=== PATIENT | male | born 1950 | race Two or more races ===

== ENCOUNTER 2025-03-17 17:57 | Inpatient (IN) | payer OTHER, MEDICAID ==
[~2025-03-17] VITALS: Ht 167.6 cm; Wt 82.1 kg
[2025-03-17 19:02] LABS: Hematocrit 28.6 % (41.0-53.0); Hemoglobin 9.1 g/dL (13.5-17.5); Nucleated Red Blood Cells % 0.1 %
[2025-03-17 19:03] LABS: Mean Corpuscular Hemoglobin 24.7 pg (28.0-32.0); Mean Corpuscular Volume 77.8 fL (80.0-100.0)
[2025-03-17 19:15] LABS: Urine Protein, UAD Negative (Negative)
[2025-03-17 19:17] LABS: Alanine Aminotransferase 20 U/L (7-40); Albumin 3.7 g/dL (3.2-4.8); Alkaline Phosphatase 79 U/L (46-116); Anion Gap 8 (5-15); BUN/Creatinine Ratio 8.0 (10.0-20.0); Blood Urea Nitrogen 18 mg/dL (9-23); Calcium 8.8 mg/dL (8.7-10.4); Carbon Dioxide 26 mmol/L (20-31); Glucose 103 mg/dL (74-106); Potassium 3.9 mmol/L (3.5-5.1); Sodium 144 mmol/L (136-145); Total Protein 6.2 g/dL (5.7-8.2)
[2025-03-17 19:18] LABS: Bilirubin, Total 0.4 mg/dL (0.2-1.0); Chloride 110 mmol/L (98-107)
--- NOTE | 2025-03-17 19:33 | ED.PDOC ---
GI ASSESSMENT HPI Comments HPI: 74 year old male presents to the emergency department with a chief complaint of diarrhea onset 10 days. Patient states he began experiencing diarrhea 10 days ago, dark brown/black as well as suprapubic pain, has about 3 bowel movements a day. Patient states 5 days ago, he began experiencing bilateral lower extremity swelling. According to patient's brother, patient has been consuming severe amounts of ETOH in the past 2 months. No other symptoms or modifying factors present at this time. Initial Vitals BP: 165/86 HR: 104 RR:18 O2: 96 Temp: 99.1 F Past Medical History: enlarged prostate, HTN Past Surgical History: Denies Social History: Denies ETOH, smoking, and drug use. Medications:Denies Allergies: NKDA HPI: Poor Historian. Past Medical History: Past Surgical History: REVIEW OF SYSTEMS: CONSTITUTIONAL: Denies acute: fever, diaphoresis, chills, HEAD: Denies acute: headache, photophobia Eyes: Denies acute: Double vision, vision loss, eye pain, eye discharge. EARS: Denies acute: tinnitus, hearing loss, ear discharge, ear pain, THROAT: Denies acute: sore throat, swelling, difficulty swallowing , pain with swallowing, change in voice. NECK: Denies acute: neck pain, neck swelling, stiff neck. HEART: Denies acute : chest pain, palpitations, LUNGS: Denies acute: SOB, wheezing, cough, hemoptysis ABDOMEN: Denies acute: Nausea, Vomiting, , hematemesis, hematochezia SKIN: Denies acute: rash, redness, lesions, itchiness. EXTREMITIES: Denies acute: calf pain, numbness, tingling, weakness, denies pain in extremity. Denies acute: Low back pain. Neuro: Denies acute: focal neurological deficit, motor or sensory focal neurological deficit, tremors, seizure like activity, confusion, dizziness, change in mental status, loss of bowel or bladder function, cauda equina like symptoms. : Denies acute: hematuria, flank pain, increase in urinary frequency. PSYCH: Denies acute: hallucination, suicidal ideation, homicidal ideation. PHYSICAL EXAM: General: ----mild----acute distress, awake and alert. Head: normocephalic, atraumatic. Neck: supple, trachea is midline, no swelling. Throat: Normal phonation. Eyes:, no erythema, no purulent discharge, no proptosis, no icterus. Heart: regular tachycardia, no significant murmur appreciated. Lungs: no apparent respiratory distress, Able to speak in full sentences. No wheezing, no rhonchi, no crackles. No stridors Clear to auscultation bilaterally. Abdomen: Suprapubic tender to palpation, non distended, soft, no guarding, no rebound, + bowel sounds. Neuro: Awake, Alert, oriented to name, self, situation, follows commands GCS=15. Speech is normal. Skin: no petechia, no purpura, no cyanosis, slightly-pale, not jaundice. Lower extremities: --4/4 b/l - Pitting edema no deformity, no focal swelling, no calf TTP. Makes eye contact. moves all four extremities. Face: no apparent facial droop. Ambulating in the ED independently. ED COURSE: DISCLAIMER: This medical document was created using an electronic medical record system with voice recognition software and computerized dictation system. Although this document has been carefully reviewed, there might still be some phonetic and typographical errors. Occasional wrong-word or "sound-alike" substitutions may have occurred due to the inherent limitations of voice recognition software. These areas are purely typographical due to imperfections of the software programs and do not reflect any compromise in the patient's medical care. Please read the chart carefully and recognize, using context, where these substitutions have occurred. Chief Complaint: Flank Pain Time Seen by MD: 19:20 Primary Care Provider: UNKNOWN Reviewed Notes: Medications, Allergies Allergies: Coded Allergies: NO KNOWN ALLERGIES (Unverified , 03/17/25) Information Source: Patient Mode of Arrival: Ambulatory Timing: Weeks Duration: Since onset Prehospital treatment: None Quality: Sharp Vomitus: None Stool: Loose, Black Severity: Moderate Recent: None Recent Hx of: None Pain Location: Suprapubic Modifying Factors: Nothing Associated sign and symptoms: Diarrhea, Abdominal Pain Past Medical History Past Medical History (Other): enlarged prostate Surgical History: Denies all surgeries Family History Family History: Reviewed,noncontributory to illness, No family hx of Cancer, No family hx of DM, No family hx of Heart art, No family hx of HTN, No family hx ofKidney art, No family hx of Liver art, No family hx of Lung art, No family hx of Stroke Social History Smoker: Non-Smoker Alcohol: Denies ETOH Use Drugs: Denies Drug Use Lives In: Home Was a procedure done? Was a procedure done?: No X-Ray, Labs, Meds, VS Vital Signs Date Time Temp Pulse Resp B/P (MAP) Pulse Ox O2 Delivery O2 Flow Rate FiO2 03/17/25 23:06 97.8 96 17 183/98 (126) 96 97.8 03/17/25 20:53 99.2 94 18 186/99 (128) 95 99.2 03/17/25 19:12 99.1 104 18 165/86 (112) 96 99.1 03/17/25 19:12 104 18 96 Room Air 03/17/25 18:48 99.1 115 16 148/88 (108) 96 99.1 Lab Test 03/17/25 21:52 03/17/25 20:37 03/17/25 19:06 03/17/25 19:03 Range/Units Troponin I High Sensitivity 3 L 3 L </=54 ng/L Urine Color Light-yellow Yellow Urine Clarity Clear Clear Urine pH 6.0 5.0-9.0 Urine Specific [place] 1.011 1.001-1.035 Urine Protein Negative Negative Urine Ketones Negative Negative Urine Blood Negative Negative /uL Urine Nitrite Negative Negative Urine Bilirubin Negative Negative Urine Urobilinogen Normal Negative mg/dL Urine Leukocyte Esterase Negative Negative /uL Urine RBC 4 0 - 3 /hpf Urine Microscopic WBC 1 0-3 /HPF Urine Squamous Epithelial Cells None seen <5 /hpf Urine Bacteria None seen None Seen /hpf Urine Glucose Normal Normal mg/dL Lactic Acid Level 1.3 0.4-2.0 mmol/L Test 03/17/25 18:48 Range/Units White Blood Count 11.2 H 4.4-10.8 10^3/uL Red Blood Count 3.68 L 4.5-5.90 10^6/uL Hemoglobin 9.1 L 13.5-17.5 g/dL Hematocrit 28.6 L 41.0-53.0 % Mean Corpuscular Volume 77.8 L 80.0-100.0 fL Mean Corpuscular Hemoglobin 24.7 L 28.0-32.0 pg Mean Corpuscular Hemoglobin Concent 31.7 L 32.0-36.0 g/dL Red Cell Distribution Width 30.3 H 11.8-14.3 % Platelet Count 388 140-450 10^3/uL Mean Platelet Volume 7.4 6.9-10.8 fL Neutrophils (%) (Auto) 63.9 37.0-80.0 % Lymphocytes (%) (Auto) 18.2 10.0-50.0 % Monocytes (%) (Auto) 13.3 H 0.0-12.0 % Eosinophils (%) (Auto) 3.7 0.0-7.0 % Basophils (%) (Auto) 0.9 0.0-2.0 % Neutrophils # (Auto) 7.1 1.6-8.6 10 ^3/uL Lymphocytes # (Auto) 2.0 0.4-5.4 10 ^3/uL Monocytes # (Auto) 1.5 H 0-1.3 10 ^3/uL Eosinophils # (Auto) 0.4 0-0.8 10 ^3/uL Basophils # (Auto) 0.1 0-0.2 10 ^3/uL Nucleated Red Blood Cells 0.1 % Sodium Level 144 136-145 mmol/L Potassium Level 3.9 3.5-5.1 mmol/L Chloride Level 110 H 98-107 mmol/L Carbon Dioxide Level 26 20-31 mmol/L Anion Gap 8 5-15 Blood Urea Nitrogen 18 9-23 mg/dL Creatinine 2.25 H 0.700-1.30 mg/dL Glomerular Filtration Rate Calc 30 >90 mL/min BUN/Creatinine Ratio 8.0 L 10.0-20.0 Serum Glucose 103 74-106 mg/dL Calcium Level 8.8 8.7-10.4 mg/dL Total Bilirubin 0.4 0.2-1.0 mg/dL Aspartate Amino Transferase (AST) 37 13-40 U/L Alanine Aminotransferase (ALT) 20 7-40 U/L Alkaline Phosphatase 79 46-116 U/L Troponin I High Sensitivity 3 L </=54 ng/L B-Type Natriuretic Peptide 176.86 0-100 pg/mL Total Protein 6.2 5.7-8.2 g/dL Albumin 3.7 3.2-4.8 g/dL Lipase 35 12-53 U/L Current Medications Medications (Trade) Dose Ordered Sig/Aaron Route Start Time Stop Time Status Last Admin Ceftriaxone Sodium 50 ml @ 100 mls/hr ONCE ONCE IV 03/17/25 19:00 03/17/25 19:29 DC 03/17/25 19:52 Sodium Chloride 1,000 ml @ 1,000 mls/hr Q1H ONCE IV 03/17/25 19:00 03/17/25 19:59 DC 03/17/25 19:52 Pantoprazole Sodium (Protonix) 40 mg ONCE ONCE IV 03/17/25 20:00 03/17/25 20:01 DC 03/17/25 20:20 [place] [address] Ph: [phone] DIAGNOSTIC IMAGING Diagnostic Imaging Report : [id number] Signed PATIENT: LIYAH ALDANA ACCT: [id number] UNIT: [id number] : 1950 LOC: ER ROOM / BED: / AGE / SEX: 74 / M ADM STATUS: REG ER SERVICE 26 ORDERING PHYSICIAN: BASIM DIEGO DO PROCEDURE(s): CXRP - CHEST PORTABLE REASON: leg swelling ORDER NUMBER(s): [id number], ACCESSION NUMBER(s): [id number] CHEST RADIOGRAPH Indication: leg swelling Technique: Single frontal view of the chest was obtained Comparison: None FINDINGS: Lines and Tubes: None Lungs: No focal consolidation. Pleura: No effusion. No pneumothorax. Cardiomediastinal contours: Unremarkable Bones: No acute osseous abnormality. IMPRESSION: No acute cardiopulmonary disease. ATED BY: FELA VALDES DO DICTATED DATE/TIME: 03/17/251957 SIGNED BY: FELA VALDES DO SIGNED DATE/TIME: 03/17/251957 CC: [place] [id number] Ph: [phone] DIAGNOSTIC IMAGING Diagnostic Imaging Report : [id number] Signed PATIENT: LIYAH ALDANA ACCT: [id number] UNIT: [id number] : 1950 LOC: ER ROOM / BED: / AGE / SEX: 74 / M ADM STATUS: REG ER SERVICE 26 ORDERING PHYSICIAN: BASIM DIEGO DO PROCEDURE(s): ABPL - CT AB PEL WO CON-NO ORAL OR IV REASON: melena, ORDER NUMBER(s): [id number], ACCESSION NUMBER(s): [id number] Exam: CT CT AB PEL WO CON-NO ORAL OR IV History: melena Comparison Study: None TECHNIQUE: Multidetector CT of the abdomen and pelvis was performed from lung bases to pubic symphysis. Imaging was performed without IV contrast. Axial, coronal, and sagittal multiplanar reformats were obtained from the axial data set by the technologist. RADIATION DOSE: CTDI vol 13.24 mGy. DLP 745.02 mGy.cm Findings: Limited evaluation of the solid organs in the absence of IV contrast. Liver: Unremarkable. Spleen: Unremarkable. Pancreas: Unremarkable. Gallbladder: Contracted gallbladder, with small cholelithiasis and suggestion of mild pericholecystic fluid/wall thickening. Adrenals: Unremarkable Kidneys: There is severe bilateral hydroureteronephrosis extending to the level of a distended urinary bladder. No obstructing calculi are seen. There is bilateral perinephric stranding. Pelvic Viscera: Distended urinary bladder. Vasculature: Moderate aortoiliac atherosclerosis. Retroperitoneum: Shotty retroperitoneal nodes. Mild nonspecific mesenteric edema. Bowel: Colonic diverticulosis without CT evidence of diverticulitis. No bowel obstruction. The appendix is normal. Musculoskeletal: Unremarkable. Soft tissues: Tiny fat containing umbilical hernia. Lungs: 9 mm left lower lobe pulmonary nodule. Impression: 1. Bilateral hydroureteronephrosis extending to the level of the distended urinary bladder. Findings could reflect a bladder outlet obstruction in the appropriate clinical setting. A superimposed infectious / inflammatory process cannot be excluded. Further clinical correlation is suggested. 2. Contracted appearance of the gallbladder, though with cholelithiasis and suggestion of mild pericholecystic edema/wall thickening. 3. There is a 9 mm left lower lobe pulmonary nodule. Comparison with any prior outside imaging is suggested in assessing acuity and interval change. If no prior imaging available, a nonemergent dedicated CT of the chest is suggested in further evaluation. 4. Additional findings as detailed. ATED BY: TUYET GOLDMAN MD DICTATED DATE/TIME: 03/17/252017 SIGNED BY: TUYET GOLDMAN MD SIGNED DATE/TIME: 03/17/252017 CC: Time of 1ST Reevaluation: 19:50 Reevaluation 1ST: Unchanged Time of 2ND Reevaluation: 23:16 (The case was discussed with the admitting team (HPI, physical exam, labs and diagnostic tests that were available at the time of disposition, ED course, treatment plan) on the phone. They agreed to admit the patient to their service and assume care of this patient from this point forward. LESLIE Puckett. ) Patient Education/Counseling: Diagnosis, Treatment Family Education/Counseling: No Family Present Departure 1 Departure Time of Disposition: 19:52 Impression: Primary Impression: Melena Additional Impressions: Abdominal pain Acute renal failure Pitting edema Anemia Diarrhea Acute urinary retention Alcohol abuse Disposition: ADMITTED INPATIENT Admit to: Tele Condition: Guarded Discharged With: Self Critical Care Note Critical Care Time?: No I personally scribed for BASIM DIEGO DO ([email or web address]) on 03/17/25 at 19:33. Electronically submitted by Gayathri Disla ([email or web address]). I personally scribed for BASIM DIEGO DO ([email or web address]) on 03/17/25 at 20:18. Electronically submitted by Gayathri Disla ([email or web address]). I personally scribed for BASIM DIEGO DO ([email or web address]) on 03/17/25 at 20:53. Electronically submitted by Gayathri Disla ([email or web address]). BASIM DIEGO DO Mar 17, 2025 19:33
[2025-03-17] MEDS: SODIUM CHLORIDE 0.9% 1,000 ML IV ONE (19:52)
[2025-03-17] MEDS: cefTRIAXone 1GM/50ML D5W 50 ML IV ONE (19:52)
--- NOTE | 2025-03-17 20:01 | DVH ---
CHEST RADIOGRAPH Indication: leg swelling Technique: Single frontal view of the chest was obtained Comparison: None FINDINGS: Lines and Tubes: None Lungs: No focal consolidation. Pleura: No effusion. No pneumothorax. Cardiomediastinal contours: Unremarkable Bones: No acute osseous abnormality. IMPRESSION: No acute cardiopulmonary disease.
[2025-03-17] MEDS: PANTOPRAZOLE 40 MG/10 ML VIAL INJ IV ONE (20:20)
--- NOTE | 2025-03-17 20:21 | DVH ---
Exam: CT CT AB PEL WO CON-NO ORAL OR IV History: melena Comparison Study: None TECHNIQUE: Multidetector CT of the abdomen and pelvis was performed from lung bases to pubic symphysi s. Imaging was performed without IV contrast. Axial, coronal, and sagittal multiplanar reformats were obtained from the axial data set by the technologist. RADIATION DOSE: CTDI vol 13.24 mGy. DLP 745.02 mGy.cm Findings: Limited evaluation of the solid organs in the absence of IV contrast. Liver: Unremarkable. Spleen: Unremarkable. Pancreas: Unremarkable. Gallbladder: Contracted gallbladder, with small cholelithiasis and suggestion of mild pericholecystic fluid/wall thickening. Adrenals: Unremarkable Kidneys: There is severe bilateral hydroureteronephrosis extending to the level of a distended urinar y bladder. No obstructing calculi are seen. There is bilateral perinephric stranding. Pelvic Viscera: Distended urinary bladder. Vasculature: Moderate aortoiliac atherosclerosis. Retroperitoneum: Shotty retroperitoneal nodes. Mild nonspecific mesenteric edema. Bowel: Colonic diverticulosis without CT evidence of diverticulitis. No bowel obstruction. The append ix is normal. Musculoskeletal: Unremarkable. Soft tissues: Tiny fat containing umbilical hernia. Lungs: 9 mm left lower lobe pulmonary nodule. Impression: 1. Bilateral hydroureteronephrosis extending to the level of the distended urinary bladder. Finding s could reflect a bladder outlet obstruction in the appropriate clinical setting. A superimposed infe ctious / inflammatory process cannot be excluded. Further clinical correlation is suggested. 2. Contracted appearance of the gallbladder, though with cholelithiasis and suggestion of mild peric holecystic edema/wall thickening. 3. There is a 9 mm left lower lobe pulmonary nodule. Comparison with any prior outside imaging is sena ggested in assessing acuity and interval change. If no prior imaging available, a nonemergent dedicat ed CT of the chest is suggested in further evaluation. 4. Additional findings as detailed.
[2025-03-17] MEDS ORDERED: DOCUSATE SOD 100 MG CAP PO PRN (22:45)
[2025-03-17] MEDS ORDERED: HYDROcodone-ACET 5/325MG TAB PO PRN (22:45)
[2025-03-17] MEDS ORDERED: ACETAMINOPHEN 325 MG TAB PO PRN (22:45)
[2025-03-18] VITALS (8 sets, daily range): BP systolic 101–190; BP diastolic 52–92; PULSE 78–99; RESP 16–18; TEMP 97.5–98.8; O2SAT 90–99
[2025-03-18] MEDS ORDERED: MORPHINE SULFATE INJ 2 MG/ml SYRG IV PRN
[2025-03-18] MEDS ORDERED: NITROGLYCERIN 0.4 MG SL TAB SL PRN
--- NOTE | 2025-03-18 03:14 | DVHHP2 ---
ROLAND MIX TIP CEMENTER 03/18/25 0314: History of Present Illness Reason for Visit: Abdominal pain History of Present Illness 74-year-old male with past medical history of hypertension and enlarged prostate presents with complaints of abdominal pain and diarrhea. Information in this HPI is limited due to the patient being a poor historian. Patient's brother initially reported to the emergency department that the patient is alcohol dependent, has been having diarrhea with black tarry stools x2 weeks. Patient is endorsing lower abdominal pain with occasional episodes of incontinence. Patient's brother also endorsed he has been drinking heavily the last couple of weeks. Patient states he only drinks a few beers every day. During the emergency department evaluation CBC: W11.2, H&H 9.1/28.6, PLT 288. Na 144, K3.9, BUN 18, creatinine 2.25, GFR 30. CT abdomen and pelvis bilateral hydroureteronephrosis extending to the level of the distended urinary bladder findings reflect bladder outlet obstruction. Contracted appearance of the gallbladder with cholelithiasis and suggestion of mild pericholecystic edema/wall thickening. At this time patient denies fevers, chills, dizziness, s hortness of breath, chest pain, palpitations, upper abdominal pain. GI: Irritable bowel disease Smoke: No ALCOHOL: heavy Drugs: None Lives: with Family Review of Systems Constitutional: No: Fever, Chills, Sweats, Weakness, Malaise, Other Eyes: No: Pain, Vision change, Conjunctivae inflammation, Eyelid inflammation, Other, Redness ENT: No: Ear pain, Ear discharge, Nose pain, Nose discharge, Nose congestion, Mouth pain, Mouth swelling, Throat pain, Throat swelling, Other Cardiovascular: Edema; No: Chest Pain, Palpitations, Orthopnea, Paroxysmal Noc. Dyspnea, Lt Headedness, Other Gastrointestinal: Abdominal Pain; No: Nausea, Vomiting, Diarrhea, Constipation, Melena, Hematochezia, Other Genitourinary: No Dysuria, No Frequency; Incontinence; No Hematuria; Retention; No Other Musculoskeletal: No: other, neck pain, shoulder pain, arm pain, back pain, hand pain, leg pain, foot pain Skin: No: Rash, Lesions, Jaundice, Bruising, Other Neurological: No: Weakness, Numbness, Incoordination, Change in speech, Confusion, Seizures, Other Allergies: Coded Allergies: NO KNOWN ALLERGIES (Unverified , 03/17/25) Medications Current Medications Medications Dose Ordered Sig/Aaron Route Start Time Stop Time Status Last Admin Dose Admin Ceftriaxone Sodium 50 ml @ 100 mls/hr DAILY@09 IV 03/18/25 09:00 Tamsulosin HCl 0.4 mg QPM PO 03/18/25 18:00 Pantoprazole Sodium 40 mg DAILY IV 03/18/25 10:00 Sodium Chloride 10 ml Q8HR IV 03/18/25 06:00 Acetaminophen/ Hydrocodone Bitart 1 tab Q4HP PRN PO 03/17/25 22:45 Ondansetron HCl 4 mg Q4HP PRN IV 03/17/25 22:45 Docusate Sodium 100 mg BIDPRN PRN PO 03/17/25 22:45 Acetaminophen 650 mg Q6HP PRN PO 03/17/25 22:45 Morphine Sulfate 2 mg Q4HPRN PRN IV 03/17/25 22:45 Nitroglycerin 0.4 mg Q5MINP PRN SL 03/18/25 00:00 Morphine Sulfate 2 mg Q30M PRN IV 03/18/25 00:00 Exam Vital Signs Vital Signs Date Time Temp Pulse Resp B/P (MAP) Pulse Ox O2 Delivery O2 Flow Rate FiO2 03/18/25 01:19 98.2 95 17 165/88 (113) 96 98.2 03/17/25 19:12 Room Air General Appearance: Alert (To self and place. ), Cooperative, mild distress HEENT: Atraumatic, PERRLA Respiratory: Clear to auscultation, Normal air movement Cardiovascular: Regular rate, Normal S1, Normal S2 Abdominal: Normal bowel sounds, Soft, Other (Diffuse lower abdominal tenderness) Extremities: No cyanosis, Other (BLE 3+ pitting edema) Neuro: Normal speech Psych/Mental Status: Mental status NL, Mood NL Labs/Xrays Labs Test 03/17/25 21:52 03/17/25 19:06 03/17/25 19:03 03/17/25 18:48 Range/Units Troponin I High Sensitivity 3 L </=54 ng/L Urine Color Light-yellow Yellow Urine Clarity Clear Clear Urine pH 6.0 5.0-9.0 Urine Specific [place] 1.011 1.001-1.035 Urine Protein Negative Negative Urine Ketones Negative Negative Urine Blood Negative Negative /uL Urine Nitrite Negative Negative Urine Bilirubin Negative Negative Urine Urobilinogen Normal Negative mg/dL Urine Leukocyte Esterase Negative Negative /uL Urine RBC 4 0 - 3 /hpf Urine Microscopic WBC 1 0-3 /HPF Urine Squamous Epithelial Cells None seen <5 /hpf Urine Bacteria None seen None Seen /hpf Urine Glucose Normal Normal mg/dL Lactic Acid Level 1.3 0.4-2.0 mmol/L White Blood Count 11.2 H 4.4-10.8 10^3/uL Red Blood Count 3.68 L 4.5-5.90 10^6/uL Hemoglobin 9.1 L 13.5-17.5 g/dL Hematocrit 28.6 L 41.0-53.0 % Mean Corpuscular Volume 77.8 L 80.0-100.0 fL Mean Corpuscular Hemoglobin 24.7 L 28.0-32.0 pg Mean Corpuscular Hemoglobin Concent 31.7 L 32.0-36.0 g/dL Red Cell Distribution Width 30.3 H 11.8-14.3 % Platelet Count 388 140-450 10^3/uL Mean Platelet Volume 7.4 6.9-10.8 fL Neutrophils (%) (Auto) 63.9 37.0-80.0 % Lymphocytes (%) (Auto) 18.2 10.0-50.0 % Monocytes (%) (Auto) 13.3 H 0.0-12.0 % Eosinophils (%) (Auto) 3.7 0.0-7.0 % Basophils (%) (Auto) 0.9 0.0-2.0 % Neutrophils # (Auto) 7.1 1.6-8.6 10 ^3/uL Lymphocytes # (Auto) 2.0 0.4-5.4 10 ^3/uL Monocytes # (Auto) 1.5 H 0-1.3 10 ^3/uL Eosinophils # (Auto) 0.4 0-0.8 10 ^3/uL Basophils # (Auto) 0.1 0-0.2 10 ^3/uL Nucleated Red Blood Cells 0.1 % Sodium Level 144 136-145 mmol/L Potassium Level 3.9 3.5-5.1 mmol/L Chloride Level 110 H 98-107 mmol/L Carbon Dioxide Level 26 20-31 mmol/L Anion Gap 8 5-15 Blood Urea Nitrogen 18 9-23 mg/dL Creatinine 2.25 H 0.700-1.30 mg/dL Glomerular Filtration Rate Calc 30 >90 mL/min BUN/Creatinine Ratio 8.0 L 10.0-20.0 Serum Glucose 103 74-106 mg/dL Calcium Level 8.8 8.7-10.4 mg/dL Total Bilirubin 0.4 0.2-1.0 mg/dL Aspartate Amino Transferase (AST) 37 13-40 U/L Alanine Aminotransferase (ALT) 20 7-40 U/L Alkaline Phosphatase 79 46-116 U/L B-Type Natriuretic Peptide 176.86 0-100 pg/mL Total Protein 6.2 5.7-8.2 g/dL Albumin 3.7 3.2-4.8 g/dL Lipase 35 12-53 U/L SEPSIS Sepsis Screen Date sepsis recognized/suspect: Mar 17, 2025 Time Sepsis recognized/suspect: 1828 Recent Procedure: No On Antibiotic Therapy: No Respiratory Rate >20: No Heart Rate >90: Yes Temp<36 C (96.8 F) or >38.3 C: No SBP <90 or MAP <65 mmHG: No New Acute Mental Status Change: No Is the patient on CPAP, BIPAP,: No Physician Orders Manager Laundry (03/17/25 ) Chest Portable (03/17/25 19:27) Ct Ab Pel Wo Con-No Oral Or Iv (03/17/25 19:27) Stool Occult Blood (03/17/25 19:50) Stool Wbc (03/17/25 19:50) Clostridium Difficile Toxin (03/17/25 19:50) Ova & Parasite Exam (03/17/25 19:50) Stool Bacterial Culture (03/17/25 19:50) Insert Heck Catheter QSHIFT (03/17/25 20:28) Ceftriaxone 1gm/50ml D5w (Rocephin) (03/18/25 09:00) Tamsulosin Hydrochloride (Flomax) (03/18/25 18:00) Pantoprazole (Protonix) (03/18/25 10:00) Allergies (03/17/25 22:42) Sodium Chloride Lock (Saline Lock Ns) (03/18/25 06:00) Oxygen Per Hour (03/17/25 22:42) Hydrocodone-Acet 5/325mg Tab ([place] 5/32 (03/17/25 22:45) Ondansetron Hcl (Zofran) (03/17/25 22:45) Docusate Sodium Capsule (Colace Capsule) (03/17/25 22:45) Complete Blood Count (03/18/25 04:00) Comprehensive Metabolic Panel (03/18/25 04:00) Condition: Serious (03/17/25 22:42) Acetaminophen Tablet (Tylenol Tablet) (03/17/25 22:45) Bedrest With Bathroom Privileg (03/17/25 22:42) Morphine Sulfate Injection (03/17/25 22:45) Sequential Compression Device (03/17/25 ) Admit (03/17/25:58) Code Status (03/17/25) Vital Signs .PER UNIT PROTOCOL (03/17/25:58) Review Orders With Adm. (03/17/25:58) Notify Md Of Changes From Base (03/17/25:) Advance Directive (03/17/25:) Echo 2d Mode Cardiac Dop (03/17/25:58) Basic Metabolic Panel (03/19/25 05:00) Basic Metabolic Panel (03/20/25 05:00) Basic Metabolic Panel (03/21/25 05:00) Basic Metabolic Panel (03/22/25 05:00) Complete Blood Count (03/19/25 05:00) Complete Blood Count (03/20/25 05:00) Complete Blood Count (03/21/25 05:00) Complete Blood Count (03/22/25 05:00) Patient Condition (03/17/25:58) Allergies (03/17/25:58) Nitroglycerin Sublingual (Ntrostat Subli (03/18/25 00:00) Morphine Sulfate Injection (03/18/25 00:00) Stat Ekg For Chest Pain (03/17/25:58) Notify Md Of Changes From Base (03/17/25:) Garnett Machine Operator For 24 Hours (03/17/25:58) Emergency Dysrhythmia Protocol (03/17/25:58) Rhythm Strips Once Every Shift (03/17/25:58) Oxygen By Nasal Cannula (03/17/25:58) Clear Liq Diet (03/18/25 Breakfast) *[facility] (03/17/25 23:58) * Urology Consult (03/17/25 23:58) Communication Order (03/17/25 23:58) *[facility] (03/17/25 23:58) Psa Total+% Free (03/18/25 04:00) Hemoglobin & Hematocrit (03/18/25 12:00) Hemoglobin & Hematocrit (03/18/25 18:00) Hemoglobin & Hematocrit (03/19/25 00:00) Hemoglobin & Hematocrit (03/19/25 06:00) Bilat Lower Dvt (03/18/25 02:17) * Cardiology Consult (03/18/25 02:49) Vital Signs Date Time Temp Pulse Resp B/P (MAP) Pulse Ox O2 Delivery O2 Flow Rate FiO2 03/18/25 01:19 98.2 95 17 165/88 (113) 96 98.2 03/17/25 23:06 97.8 96 17 183/98 (126) 96 97.8 03/17/25 20:53 99.2 94 18 186/99 (128) 95 99.2 03/17/25 19:12 99.1 104 18 165/86 (112) 96 99.1 03/17/25 19:12 104 18 96 Room Air Laboratory Tests Test 03/17/25 18:48 03/17/25 19:03 White Blood Count 11.2 10^3/uL (4.4-10.8) H Lactic Acid Level 1.3 mmol/L (0.4-2.0) Medications Medications Dose Ordered Sig/Aaron Route Start Time Stop Time Status Last Admin Dose Admin Ceftriaxone Sodium 50 ml @ 100 mls/hr ONCE ONCE IV 03/17/25 19:00 03/17/25 19:29 DC 03/17/25 19:52 100 MLS/HR Pantoprazole Sodium 40 mg ONCE ONCE IV 03/17/25 20:00 03/17/25 20:01 DC 03/17/25 20:20 40 MG Sodium Chloride 1,000 ml @ 1,000 mls/hr Q1H ONCE IV 03/17/25 19:00 03/17/25 19:59 DC 03/17/25 19:52 1,000 MLS/HR Assessment/Plan Assessment/Plan Reported Melena r/o GI bleed Cholelithiasis Anemia Urinary retention, likely bladder outlet obstruction Bilateral Hydroureteronephrosis Acute kidney injury, unknown CKD Bilateral lower extremity edema HX ETOH dependence Plan Admit telemetry Gastroenterology consult. Occult stool, check stool for leukocytes, c diff. Clear liquid diet. Consult urology. Indwelling Heck catheter. Flomax. Check PSA. Consult nephrology. Monitor BMP. trend BUN/creatinine. Strict intake an output. Cardiology consult. Echocardiogram. BLE venous doppler. Monitor H&H every six hours. Transfuse PRBC for hemoglobin less than seven. Monitor for withdrawal symptoms. Banana bag. PRN Ativan for withdrawal symptoms GI ppx protonix / DVT ppx SCD Plan discussed with: Patient My Orders Orders - ROLAND MIX NP Procedure Category Date Status Time Admit ADMIT 03/17/25 Transmitted 23:58 Code Status CODE 03/17/25 Transmitted 23:58 Vital Signs [facility] 03/17/25 In Process 23:58 Review Orders With [facility] 03/17/25 In Process Adm. 23:58 Notify Of Changes [facility] 03/17/25 In Process From Base 23:58 Advance Directive [facility] 03/17/25 In Process 23:58 Echo 2d Mode Cardiac US 03/17/25 Logged DOP 23:58 Basic Metabolic Panel LAB 03/19/25 Verified 05:00 Basic Metabolic Panel LAB 03/20/25 Verified 05:00 Basic Metabolic Panel LAB 03/21/25 Verified 05:00 Basic Metabolic Panel LAB 03/22/25 Verified 05:00 Complete Blood Count LAB 03/19/25 Verified 05:00 Complete Blood Count LAB 03/20/25 Verified 05:00 Complete Blood Count LAB 03/21/25 Verified 05:00 Complete Blood Count LAB 03/22/25 Verified 05:00 Patient Condition ORDERS 03/17/25 Transmitted 23:58 Allergies [facility] 03/17/25 In Process 23:58 Nitroglycerin PHA 03/18/25 In Process Sublingual (Ntrostat 00:00 Morphine Sulfate PHA 03/18/25 In Process Injection 00:00 Stat Ekg For Chest [facility] 03/17/25 In Process Pain 23:58 Notify Of Changes DANA 03/17/25 In Process From Base 23:58 Garnett Machine Operator For [facility] 03/17/25 In Process 24 Hours 23:58 Emergency Dysrhythmia [facility] 03/17/25 In Process Protocol 23:58 Rhythm Strips Once DANA 03/17/25 In Process Every Shift 23:58 Oxygen By Nasal RT 03/17/25 Transmitted Cannula 23:58 Clear Liq Diet DIET 03/18/25 Transmitted Breakfast *[facility] CONS 03/17/25 Transmitted -[place] 23:58 * Urology Consult CONS 03/17/25 Transmitted 23:58 Communication Order ORDERS 03/17/25 Transmitted 23:58 *[facility] CONS 03/17/25 Transmitted 23:58 Psa Total+% Free LAB 03/18/25 Logged 04:00 Hemoglobin & LAB 03/18/25 Logged Hematocrit 12:00 Hemoglobin & LAB 03/18/25 Logged Hematocrit 18:00 Hemoglobin & LAB 03/19/25 Verified Hematocrit 00:00 Hemoglobin & LAB 03/19/25 Verified Hematocrit 06:00 Bilat Lower Dvt US 03/18/25 Logged 02:17 * Cardiology Consult CONS 03/18/25 Transmitted 02:49 Date of Service: Mar 18, 2025 Billing Provider: SUZIE GORDON MD Common Visit Codes: NOT BILLABLE SUZIE GORDON MD 03/18/25 1247: Review of Systems Allergies: Coded Allergies: NO KNOWN ALLERGIES (Unverified , 03/17/25) Additional Comments Additional Comments Additional Comments Patient's chart is reviewed discussed with the nurse practitioner. Patient is seen evaluated and admitted by TIP CEMENTER this morning. I agree with his evaluation, documentation, assessment and care plan as outlined. Discussed with the balloon design printer on the medical floor. ROLAND MIX NP Mar 18, 2025 03:14 SUZIE GORDON MD Mar 18, 2025 12:47
--- NOTE | 2025-03-18 03:37 | DVH ---
Bilateral lower extremity venous duplex Clinical History: BLE edema Comparison: None Findings: Duplex Doppler evaluation of the deep venous systems of both lower extremities from the common femora l veins to the popliteal veins including color Doppler and spectral/pulsed waveform analysis was perf ormed. RIGHT SIDE: The common femoral vein demonstrates appropriate compressibility and waveform variability. There is compressibility/patency of the great saphenous vein at the proximal thigh. The femoral vein demonstrates appropriate compressibility and waveform variability. The deep femoral vein demonstrates appropriate compressibility and waveform variability. The popliteal vein demonstrates appropriate compressibility and waveform variability. There is normal compressibility at the tibioperoneal trunk. LEFT SIDE: The common femoral vein demonstrates appropriate compressibility and waveform variability. There is compressibility/patency of the great saphenous vein at the proximal thigh. The femoral vein demonstrates appropriate compressibility and waveform variability. The deep femoral vein demonstrates appropriate compressibility and waveform variability. The popliteal vein demonstrates appropriate compressibility and waveform variability. There is normal compressibility at the tibioperoneal trunk. IMPRESSION: No right or left femoropopliteal venous thrombosis. If clinical concern/symptoms persist or worsen, short-interval follow-up study is suggested. END IMPRESSION:
[2025-03-18] MEDS: SODIUM CHLOR 0.9% PF (SALINE LOCK) 10ML VIAL/SYR IV SCH (06:00)
[2025-03-18 06:55] LABS: Hemoglobin 8.4 g/dL (13.5-17.5); Nucleated Red Blood Cells % 0.1 %
[2025-03-18 06:57] LABS: Hematocrit 26.0 % (41.0-53.0); Mean Corpuscular Hemoglobin 25.0 pg (28.0-32.0); Mean Corpuscular Volume 77.1 fL (80.0-100.0)
[2025-03-18 07:00] LABS: Alanine Aminotransferase 17 U/L (7-40); Albumin 3.4 g/dL (3.2-4.8); Alkaline Phosphatase 64 U/L (46-116); Anion Gap 9 (5-15); BUN/Creatinine Ratio 7.4 (10.0-20.0); Blood Urea Nitrogen 14 mg/dL (9-23); Carbon Dioxide 25 mmol/L (20-31); Glucose 89 mg/dL (74-106); Magnesium 1.8 mg/dL (1.6-2.6); Sodium 144 mmol/L (136-145); Total Protein 5.8 g/dL (5.7-8.2)
[2025-03-18 07:01] LABS: Bilirubin, Total 0.6 mg/dL (0.2-1.0)
[2025-03-18 07:13] LABS: Calcium 8.7 mg/dL (8.7-10.4); Chloride 110 mmol/L (98-107); Potassium 3.3 mmol/L (3.5-5.1)
[2025-03-18 07:34] LABS: Anisocytosis Moderate
[2025-03-18] MEDS: cefTRIAXone 1GM/50ML D5W 50 ML IV SCH (10:10)
[2025-03-18] MEDS: PANTOPRAZOLE 40 MG/10 ML VIAL INJ IV SCH ×2 (10:10→22:18)
--- NOTE | 2025-03-18 10:22 | DVHINCON2 ---
Date Seen: Mar 18, 2025 Referring Physician Armand Reason for Consultation R/O CHF History of Present Illness 74-year-old male with PMH for HTN, enlarged prostate, ETOH abuse, presents to the hospital with abdominal pain, nausea, diarrhea. Patient states symptoms started approximately a day and a half ago and was referred to come to the hospital by a friend. Patient states that he has also been having black tarry stools x2 weeks, denies being on any anticoagulation therapy. Patient found to have increased bilateral lower extremity edema. Denies any previous cardiac history. Per chart review patient's brother endorsed heavy drinking for the last couple of weeks. BNP 176, troponin negative x3, creatinine 2.25 trending 1.88. CXR negative for acute cardiopulmonary disease. Bilateral lower extremity ultrasound negative for DVT. Abdominal pelvis ultrasound showing bilateral hydroureteronephrosis to the level distended urinary bladder consistent with bladder outlet obstruction. Past Medical History HTN, BPH Past Surgical History Denies previous surgeries Family History Denies pertinent family cardiac history Social History Denies tobacco or illicit drug use, patient endorses heavy ETOH use for many years. Allergies: Coded Allergies: NO KNOWN ALLERGIES (Unverified , 03/17/25) Current Medications Current Medications Medications (Trade) Dose Ordered Sig/Aaron Route PRN Reason Start Time Stop Time Status Last Admin Ceftriaxone Sodium 50 ml @ 100 mls/hr DAILY@09 IV 03/18/25 09:00 Tamsulosin HCl (Flomax) 0.4 mg QPM PO 03/18/25 18:00 Pantoprazole Sodium (Protonix) 40 mg DAILY IV 03/18/25 10:00 Sodium Chloride (Saline Lock Ns) 10 ml Q8HR IV 03/18/25 06:00 03/18/25 06:00 Acetaminophen/ Hydrocodone Bitart ([place] 5/325MG Tab) 1 tab Q4HP PRN PO MODERATE PAIN (4-6 PAIN SCALE) 03/17/25 22:45 Ondansetron HCl (Zofran) 4 mg Q4HP PRN IV NAUSEA / VOMITING 03/17/25 22:45 Docusate Sodium (Colace Capsule) 100 mg BIDPRN PRN PO FOR CONSTIPATION 03/17/25 22:45 Acetaminophen (Tylenol Tablet) 650 mg Q6HP PRN PO PAIN SCALE 1-3 OR TEMP>100.4 03/17/25 22:45 Morphine Sulfate 2 mg Q4HPRN PRN IV SEVERE PAIN (7-10 PAIN SCALE) 03/17/25 22:45 Nitroglycerin (Ntrostat Sublingual) 0.4 mg Q5MINP PRN SL FOR CHEST PAIN 03/18/25 00:00 Morphine Sulfate 2 mg Q30M PRN IV FOR CHEST PAIN 03/18/25 00:00 Lorazepam (Ativan Inj) 0.5 mg Q4HPRN PRN IV ALCOHOL WITHDRAWAL SYMPTOMS 03/18/25 03:15 Hydralazine HCl (Apresoline Injection) 10 mg Q6HP PRN IV SBP>160 03/18/25 03:30 Folic Acid 1 mg/ Multivitamins 10 ml/Magnesium Sulfate 8 meq/ Thiamine HCl 100 mg/Dextrose 1,013.2 ml @ 75 mls/hr DAILY@1800 INJ 03/18/25 18:00 Review of Systems Constitutional: No: Fever, Chills, Sweats, Weakness, Malaise, Other Eyes: No: Pain, Vision change, Conjunctivae inflammation, Eyelid inflammation, Other, Redness ENT: No: Ear pain, Ear discharge, Nose pain, Nose discharge, Nose congestion, Mouth pain, Mouth swelling, Throat pain, Throat swelling, Other Respiratory: No: Cough, Dry, Shortness of breath, SOB with exertion, Wheezing, Hemoptysis, Pleuritic Pain, Sputum, Wheezing, Other Cardiovascular: ; No: Chest Pain Palpitations, Orthopnea, Paroxysmal Noc. Dyspnea, , Lt Headedness, Other positive: Edema Gastrointestinal: No: Nausea, Vomiting, , Constipation, , Hematochezia, Other positive: Abdominal Pain, Diarrhea, Melena Genitourinary: No Dysuria, No Frequency, No Incontinence, No Hematuria, No Retention, No Other Musculoskeletal: neck pain; No: other, shoulder pain, arm pain, back pain, hand pain, leg pain, foot pain Skin: No: Rash, Lesions, Jaundice, Bruising, Other Neurological: Other (Dizziness, headache.); No: Weakness, Numbness, Incoordination, Change in speech, Confusion, Seizures Vital Signs Vital Signs Date Time Temp Pulse Resp B/P (MAP) Pulse Ox O2 Delivery O2 Flow Rate FiO2 03/18/25 06:59 Room Air* 0 21 03/18/25 06:56 158/87 (110) 03/18/25 06:51 78 18 99 03/18/25 05:34 98.0 98.0 Physical Exam General appearance: Patient is well-developed, well-nourished, in no acute distress. HEENT: Exam shows: Normocephalic, atraumatic, PERRLA, EOMI Neck: Supple, no bruits Chest: Equal chest excursion bilaterally. Breath sounds normal-no rales or wh eezes. Heart: Rhythm: Regular rate; no murmur or gallop Abdomen: Exam shows: Soft, nontender, distended Musculoskeletal: No clubbing, no cyanosis, +2-3 lower extremity edema Dermatology: Skin warm, moist. Neurological: Exam shows: Alert and oriented x4, normal speech Available prior records, labs, EKG, rhythm strips reviewed and interpreted Labs/Diagnostic Data Labs Test 03/18/25 06:07 03/17/25 21:52 03/17/25 19:06 03/17/25 19:03 Range/Units White Blood Count 7.8 # 4.4-10.8 10^3/uL Red Blood Count 3.38 L 4.5-5.90 10^6/uL Hemoglobin 8.4 L 13.5-17.5 g/dL Hematocrit 26.0 L 41.0-53.0 % Mean Corpuscular Volume 77.1 L 80.0-100.0 fL Mean Corpuscular Hemoglobin 25.0 L 28.0-32.0 pg Mean Corpuscular Hemoglobin Concent 32.4 32.0-36.0 g/dL Red Cell Distribution Width 30.4 H 11.8-14.3 % Platelet Count 342 140-450 10^3/uL Mean Platelet Volume 7.6 6.9-10.8 fL Neutrophils (%) (Auto) 69.0 37.0-80.0 % Lymphocytes (%) (Auto) 15.1 10.0-50.0 % Monocytes (%) (Auto) 11.2 0.0-12.0 % Eosinophils (%) (Auto) 4.0 0.0-7.0 % Basophils (%) (Auto) 0.7 0.0-2.0 % Neutrophils # (Auto) 5.4 1.6-8.6 10 ^3/uL Lymphocytes # (Auto) 1.2 0.4-5.4 10 ^3/uL Monocytes # (Auto) 0.9 0-1.3 10 ^3/uL Eosinophils # (Auto) 0.3 0-0.8 10 ^3/uL Basophils # (Auto) 0.1 0-0.2 10 ^3/uL Nucleated Red Blood Cells 0.1 % Platelet Estimate Adequate Hypochromasia (manual) Slight Anisocytosis (manual) Moderate Microcytosis Slight Target Cells Few Sodium Level 144 136-145 mmol/L Potassium Level 3.3 L 3.5-5.1 mmol/L Chloride Level 110 H 98-107 mmol/L Carbon Dioxide Level 25 20-31 mmol/L Anion Gap 9 5-15 Blood Urea Nitrogen 14 9-23 mg/dL Creatinine 1.88 H 0.700-1.30 mg/dL Glomerular Filtration Rate Calc 37 >90 mL/min BUN/Creatinine Ratio 7.4 L 10.0-20.0 Serum Glucose 89 74-106 mg/dL Calcium Level 8.7 8.7-10.4 mg/dL Magnesium Level 1.8 1.6-2.6 mg/dL Total Bilirubin 0.6 0.2-1.0 mg/dL Aspartate Amino Transferase (AST) 30 13-40 U/L Alanine Aminotransferase (ALT) 17 7-40 U/L Alkaline Phosphatase 64 46-116 U/L Total Protein 5.8 5.7-8.2 g/dL Albumin 3.4 3.2-4.8 g/dL Troponin I High Sensitivity 3 L </=54 ng/L Urine Color Light-yellow Yellow Urine Clarity Clear Clear Urine pH 6.0 5.0-9.0 Urine Specific [place] 1.011 1.001-1.035 Urine Protein Negative Negative Urine Ketones Negative Negative Urine Blood Negative Negative /uL Urine Nitrite Negative Negative Urine Bilirubin Negative Negative Urine Urobilinogen Normal Negative mg/dL Urine Leukocyte Esterase Negative Negative /uL Urine RBC 4 0 - 3 /hpf Urine Microscopic WBC 1 0-3 /HPF Urine Squamous Epithelial Cells None seen <5 /hpf Urine Bacteria None seen None Seen /hpf Urine Glucose Normal Normal mg/dL Lactic Acid Level 1.3 0.4-2.0 mmol/L Test 03/17/25 18:48 Range/Units B-Type Natriuretic Peptide 176.86 0-100 pg/mL Lipase 35 12-53 U/L Assessment * R/O CHF - BNP 176, CXR negative for acute congestion/edema. Breathing stable on room air. Follow up echo. * Uncontrolled HTN - Carvedilol 6.25 mg twice daily. Will hold off BRIAN/ARB due to ALISON. * BLE - US negative for DVT. Consider Lasix if patient able to void. * Abdominal PAin, Diarrhea - Management per primary team. * ALISON, underline CKD - Likely in setting of bladder outlet obstruction, BPH. Continue monitoring. Nephrology on board. * Bilateral hydroureteronephrosis, bladder outlet obstruction, UTI - on IV antibiotics, neurology following. * ETOH abuse - Recommend CIWA protocol. Advised against. * Hypokalemia - Monitor and replce electrolytes Case Discussed with Dr Wills. Follow up ECHO. Consider lasix if patient able to void. BP control. Monitor kidney function. Critical care, time spent: 40 minutes This medical document was created using an electronic medical record system with voice recognition software and computerized dictation system. Although this document has been carefully reviewed, there might still be some phonetic and typographical errors. Occasional wrong-word or ``sound-alike substitutions may have occurred due to the inherent limitations of voice recognition software. These areas are purely typographical due to imperfections of the software programs and do not reflect any compromise in the patient's medical care. Please read the chart carefully and recognize, using context, where these substitutions have occurred. Thank you for allowing me to participate in the management of this patient. The treatment plan was discussed with and agreed upon by patient/family including requesting consultants and ordering of imaging/procedures. Plan discussed with: Patient NYHA Physical activity limitations: Class1(None)absent sob, Date of Service: Mar 18, 2025 Billing Provider: MICHAEL ARRIAGA Cardiology Common Codes: 54370-CBXLPIE INP/OBS CARE (High), 25700-AGCOQOBQ CARE 30-74 MIN MICHAEL ARRIAGA Mar 18, 2025 10:22
[2025-03-18] MEDS: CARVEDILOL 3.125 MG TAB PO ONE (11:30)
[2025-03-18] MEDS: LORazepam 2MG/ML-1ML VIAL IV PRN (11:31)
[2025-03-18] MEDS: MORPHINE SULFATE INJ 2 MG/ml SYRG IV PRN (11:31)
[2025-03-18] MEDS: POTASSIUM CHL 20 Meq TABLET PO ONE (11:31)
[2025-03-18] MEDS: ONDANSETRON HCL 4 MG/2 ML VIAL IV PRN (11:31)
--- NOTE | 2025-03-18 12:04 | DVHINCON2 ---
Date of service: Mar 18, 2025 Referring Physician sugar Reason for Consultation ALISON History of Present Illness 74 years old man with past medical history of Chronic kidney disease, hypertension, prostatomegaly, presented with chief complaints of abdominal pain and diarrhea and reduced urination patient also had black tarry stools per HPI Unknown baseline renal function,, CT scan noted Zarco catheter has been ordered last night around 8:30 p.m. however it is not placed until now by ER staff Past Medical History Per HPI Past Surgical History Unknown exactly Allergies: Coded Allergies: NO KNOWN ALLERGIES (Unverified , 03/17/25) Current Medications Current Medications Medications (Trade) Dose Ordered Sig/Aaron Route PRN Reason Start Time Stop Time Status Last Admin Ceftriaxone Sodium 50 ml @ 100 mls/hr DAILY@09 IV 03/18/25 09:00 03/18/25 10:10 Tamsulosin HCl (Flomax) 0.4 mg QPM PO 03/18/25 18:00 Pantoprazole Sodium (Protonix) 40 mg DAILY IV 03/18/25 10:00 03/18/25 10:10 Sodium Chloride (Saline Lock Ns) 10 ml Q8HR IV 03/18/25 06:00 03/18/25 06:00 Acetaminophen/ Hydrocodone Bitart ([place] 5/325MG Tab) 1 tab Q4HP PRN PO MODERATE PAIN (4-6 PAIN SCALE) 03/17/25 22:45 Ondansetron HCl (Zofran) 4 mg Q4HP PRN IV NAUSEA / VOMITING 03/17/25 22:45 03/18/25 11:31 Docusate Sodium (Colace Capsule) 100 mg BIDPRN PRN PO FOR CONSTIPATION 03/17/25 22:45 Acetaminophen (Tylenol Tablet) 650 mg Q6HP PRN PO PAIN SCALE 1-3 OR TEMP>100.4 03/17/25 22:45 Morphine Sulfate 2 mg Q4HPRN PRN IV SEVERE PAIN (7-10 PAIN SCALE) 03/17/25 22:45 03/18/25 11:31 Nitroglycerin (Ntrostat Sublingual) 0.4 mg Q5MINP PRN SL FOR CHEST PAIN 03/18/25 00:00 Morphine Sulfate 2 mg Q30M PRN IV FOR CHEST PAIN 03/18/25 00:00 Lorazepam (Ativan Inj) 0.5 mg Q4HPRN PRN IV ALCOHOL WITHDRAWAL SYMPTOMS 03/18/25 03:15 03/18/25 11:31 Hydralazine HCl (Apresoline Injection) 10 mg Q6HP PRN IV SBP>160 03/18/25 03:30 Folic Acid 1 mg/ Multivitamins 10 ml/Magnesium Sulfate 8 meq/ Thiamine HCl 100 mg/Dextrose 1,013.2 ml @ 75 mls/hr DAILY@1800 INJ 03/18/25 18:00 Carvedilol (Coreg Tablet) 6.25 mg Q12HR PO 03/18/25 22:00 Review of Systems As documented in HPI H&P Exam Vital Signs/I&O Vital Sign Date Time Temp Pulse Resp B/P (MAP) Pulse Ox O2 Delivery O2 Flow Rate FiO2 03/18/25 11:31 94 20 137/74 03/18/25 10:00 96 03/18/25 09:00 98.3 98.3 03/18/25 08:00 Room Air* 0 21 Intake and Output 03/17/25 03/18/25 19:00 07:00 Intake Total 1050 ml Balance 1050 ml Intake IV Total 1050 ml Physical Exam General-not in any distress HEENT-normocephalic, no icterus, no pallor, neck supple Respiratory-fair air entry bilateral, no rhonchi, no wheeze [id number] heard, no murmurs appreciated Abdominal-soft, nontender, nondistended Musculoskeletal-positive pedal edema, no calf tenderness Genitourinary-deferred Neuro-awake alert oriented x3, Psychiatric-not agitated, cooperative, Labs/Diagnostic Data Labs/Diagnostic Data Laboratory Tests Test 03/18/25 06:07 03/17/25 21:52 03/17/25 20:37 03/17/25 19:06 Range/Units White Blood Count 7.8 # 4.4-10.8 10^3/uL Red Blood Count 3.38 L 4.5-5.90 10^6/uL Hemoglobin 8.4 L 13.5-17.5 g/dL Hematocrit 26.0 L 41.0-53.0 % Mean Corpuscular Volume 77.1 L 80.0-100.0 fL Mean Corpuscular Hemoglobin 25.0 L 28.0-32.0 pg Mean Corpuscular Hemoglobin Concent 32.4 32.0-36.0 g/dL Red Cell Distribution Width 30.4 H 11.8-14.3 % Platelet Count 342 140-450 10^3/uL Mean Platelet Volume 7.6 6.9-10.8 fL Neutrophils (%) (Auto) 69.0 37.0-80.0 % Lymphocytes (%) (Auto) 15.1 10.0-50.0 % Monocytes (%) (Auto) 11.2 0.0-12.0 % Eosinophils (%) (Auto) 4.0 0.0-7.0 % Basophils (%) (Auto) 0.7 0.0-2.0 % Neutrophils # (Auto) 5.4 1.6-8.6 10 ^3/uL Lymphocytes # (Auto) 1.2 0.4-5.4 10 ^3/uL Monocytes # (Auto) 0.9 0-1.3 10 ^3/uL Eosinophils # (Auto) 0.3 0-0.8 10 ^3/uL Basophils # (Auto) 0.1 0-0.2 10 ^3/uL Nucleated Red Blood Cells 0.1 % Platelet Estimate Adequate Hypochromasia (manual) Slight Anisocytosis (manual) Moderate Microcytosis Slight Target Cells Few Sodium Level 144 136-145 mmol/L Potassium Level 3.3 L 3.5-5.1 mmol/L Chloride Level 110 H 98-107 mmol/L Carbon Dioxide Level 25 20-31 mmol/L Anion Gap 9 5-15 Blood Urea Nitrogen 14 9-23 mg/dL Creatinine 1.88 H 0.700-1.30 mg/dL Glomerular Filtration Rate Calc 37 >90 mL/min BUN/Creatinine Ratio 7.4 L 10.0-20.0 Serum Glucose 89 74-106 mg/dL Calcium Level 8.7 8.7-10.4 mg/dL Magnesium Level 1.8 1.6-2.6 mg/dL Total Bilirubin 0.6 0.2-1.0 mg/dL Aspartate Amino Transferase (AST) 30 13-40 U/L Alanine Aminotransferase (ALT) 17 7-40 U/L Alkaline Phosphatase 64 46-116 U/L Total Protein 5.8 5.7-8.2 g/dL Albumin 3.4 3.2-4.8 g/dL Troponin I High Sensitivity 3 L 3 L </=54 ng/L Urine Color Light-yellow Yellow Urine Clarity Clear Clear Urine pH 6.0 5.0-9.0 Urine Specific [place] 1.011 1.001-1.035 Urine Protein Negative Negative Urine Ketones Negative Negative Urine Blood Negative Negative /uL Urine Nitrite Negative Negative Urine Bilirubin Negative Negative Urine Urobilinogen Normal Negative mg/dL Urine Leukocyte Esterase Negative Negative /uL Urine RBC 4 0 - 3 /hpf Urine Microscopic WBC 1 0-3 /HPF Urine Squamous Epithelial Cells None seen <5 /hpf Urine Bacteria None seen None Seen /hpf Urine Glucose Normal Normal mg/dL Test 03/17/25 19:03 03/17/25 18:48 Range/Units Lactic Acid Level 1.3 0.4-2.0 mmol/L White Blood Count 11.2 H 4.4-10.8 10^3/uL Red Blood Count 3.68 L 4.5-5.90 10^6/uL Hemoglobin 9.1 L 13.5-17.5 g/dL Hematocrit 28.6 L 41.0-53.0 % Mean Corpuscular Volume 77.8 L 80.0-100.0 fL Mean Corpuscular Hemoglobin 24.7 L 28.0-32.0 pg Mean Corpuscular Hemoglobin Concent 31.7 L 32.0-36.0 g/dL Red Cell Distribution Width 30.3 H 11.8-14.3 % Platelet Count 388 140-450 10^3/uL Mean Platelet Volume 7.4 6.9-10.8 fL Neutrophils (%) (Auto) 63.9 37.0-80.0 % Lymphocytes (%) (Auto) 18.2 10.0-50.0 % Monocytes (%) (Auto) 13.3 H 0.0-12.0 % Eosinophils (%) (Auto) 3.7 0.0-7.0 % Basophils (%) (Auto) 0.9 0.0-2.0 % Neutrophils # (Auto) 7.1 1.6-8.6 10 ^3/uL Lymphocytes # (Auto) 2.0 0.4-5.4 10 ^3/uL Monocytes # (Auto) 1.5 H 0-1.3 10 ^3/uL Eosinophils # (Auto) 0.4 0-0.8 10 ^3/uL Basophils # (Auto) 0.1 0-0.2 10 ^3/uL Nucleated Red Blood Cells 0.1 % Sodium Level 144 136-145 mmol/L Potassium Level 3.9 3.5-5.1 mmol/L Chloride Level 110 H 98-107 mmol/L Carbon Dioxide Level 26 20-31 mmol/L Anion Gap 8 5-15 Blood Urea Nitrogen 18 9-23 mg/dL Creatinine 2.25 H 0.700-1.30 mg/dL Glomerular Filtration Rate Calc 30 >90 mL/min BUN/Creatinine Ratio 8.0 L 10.0-20.0 Serum Glucose 103 74-106 mg/dL Calcium Level 8.8 8.7-10.4 mg/dL Total Bilirubin 0.4 0.2-1.0 mg/dL Aspartate Amino Transferase (AST) 37 13-40 U/L Alanine Aminotransferase (ALT) 20 7-40 U/L Alkaline Phosphatase 79 46-116 U/L Troponin I High Sensitivity 3 L </=54 ng/L B-Type Natriuretic Peptide 176.86 0-100 pg/mL Total Protein 6.2 5.7-8.2 g/dL Albumin 3.7 3.2-4.8 g/dL Lipase 35 12-53 U/L Assessment acute kidney injury likely secondary to obstructive etiology bilateral hydroureteronephrosis extending to level of distended urinary bladder Possible bladder outlet obstruction pulm nodule HTN recs zarco cath lasix iv gentle as pedal edema + will follow closely UA looks wnl urology consult Reviewed vital signs, lab work, imaging studies, medications, microbiology, other physician recommendations Total time spent 80 minutes More than 50% of the time spent providing direct adyg-da-odib care . Thank you for allowing me to participate in the care of your patient. Plan discussed with: Patient JACQUELINE MERLOS MD Mar 18, 2025 12:04
[2025-03-18 12:24] LABS: Hematocrit 25.5 % (41.0-53.0); Hemoglobin 8.1 g/dL (13.5-17.5)
[2025-03-18] MEDS: FUROSEMIDE 40 MG/4 ML VIAL IV ONE (12:36)
[2025-03-18] MEDS: hydrALAZINE HCL 20 MG/ML VL IV PRN (15:07)
[2025-03-18] MEDS: TAMSULOSIN HYDROCHLORIDE 0.4 MG CAP PO SCH (17:25)
[2025-03-18] MEDS: FOLIC ACID 1 MG, MULTIPLE VITAMIN 10 ML, MAGNESIUM SULF SDV 50% 8 MEQ, THIAMINE INJ 100... INJ SCH (17:25)
[2025-03-18 18:35] LABS: Hemoglobin 9.7 g/dL (13.5-17.5)
[2025-03-18 18:36] LABS: Hematocrit 31.5 % (41.0-53.0)
--- NOTE | 2025-03-18 19:12 | DVHSR ---
APPROVED REPORT EXAM: LIMITED Two-dimensional and M-mode echocardiogram with Doppler and color Doppler. Blood Pressure: 158/87 mmHg INDICATION BLE Edema RISK FACTORS Height: 5' 6", Weight: 194 DIMENSIONS LVDd5.1 (3.8-5.7cm)LA (2D)4.4 (1.9-4.0cm)Aortic Root3.2 (2.0-3.7cm) LVDs3.6 (2.5-4.0cm)LA (MM) (1.9-4.0cm)Aortic Cusp Exc1.8 (1.5-2.0cm) EF (%) 55.0 (55-70%)Rt. Atrium4.0 (1.9-4.0cm)Asc. Aorta cm IVSd0.9 (0.7-1.1cm)RV (D) (1.8-2.4cm) PWd0.8 (0.7-1.1cm) Mitral Valve MitralMitral Stenosis E wave0.70m/sMV Mean GR.mmHg A wave0.90m/sMV Peak GR.mmHg E/A ratio0.82D MVAcm2 Aortic Valve Aortic ValveAortic Stenosis V11.20m/Cassandra Mean GR.4mmHg V21.30m/Cassandra Peak GR.8mmHg LVOT Diameter2.2 (1.8-2.4cm)Doppler AVA3.51cm2 Pulmonic Valve V20.40m/s Other Information Quality : Technically LimitedRhythm : Technically limited study due to body habitus and patient position. Conclusion Left ventricle: Left ventricle was normal-sized with normal systolic function. There was no wall mo tion abnormality. LVEF was 55%. Diastolic function was considered normal for age. Right ventricle was normal-sized with normal systolic function. Both atria were normal-sized. Aortic valve was not well visualized. There was no aortic insufficiency/stenosis. There was no mitr al/tricuspid regurgitation. Pulmonary valve was not well visualized. There was trace pericardial effusion As there was no good tricuspid regurgitation jet, right ventricular systolic pressure could not be es timated. There was no echocardiographic evidence for pulmonary hypertension.
[2025-03-18] MEDS: CARVEDILOL 3.125 MG TAB PO SCH (22:17)
--- NOTE | 2025-03-18 22:53 | DVHINCON2 ---
Date of service: Mar 18, 2025 (Late entry Time of visit 9:30 a.m.) Referring Physician Dr Ram Reason for Consultation Melena and anemia History of Present Illness 74-year-old male admitted with complaints of abdominal pain and diarrhea. Patient's brother initially reported to the emergency department that the patient is alcohol dependent, has been having diarrhea with black tarry stools x2 weeks. Patient was seen in ER this morning and was feeling better. He denied any abdominal pain or diarrhea at that time. Patient's brother also endorsed he has been drinking heavily the last couple of weeks. Patient states he only drinks a few beers every day. CT abdomen and pelvis bilateral hydroureteronephrosis extending to the level of the distended urinary bladder findings reflect bladder outlet obstruction. Contracted appearance of the gallbladder with cholelithiasis and suggestion of mild pericholecystic edema/wall thickening. At this time patient denies fevers, chills, dizziness, shortness of breath, chest pain, palpitations, upper abdominal pain. Past Medical History GI: Irritable bowel disease ETOH abuse HTN Social History Smoke: positive ALCOHOL: heavy Drugs: None Allergies: Coded Allergies: NO KNOWN ALLERGIES (Unverified , 03/17/25) Current Medications Current Medications Medications (Trade) Dose Ordered Sig/Aaron Route PRN Reason Start Time Stop Time Status Last Admin Ceftriaxone Sodium 50 ml @ 100 mls/hr DAILY@09 IV 03/18/25 09:00 03/18/25 10:10 Tamsulosin HCl (Flomax) 0.4 mg QPM PO 03/18/25 18:00 03/18/25 17:25 Pantoprazole Sodium (Protonix) 40 mg DAILY IV 03/18/25 10:00 03/18/25 12:47 DC 03/18/25 10:10 Sodium Chloride (Saline Lock Ns) 10 ml Q8HR IV 03/18/25 06:00 03/18/25 22:18 Nitroglycerin (Ntrostat Sublingual) 0.4 mg Q5MINP PRN SL FOR CHEST PAIN 03/18/25 00:00 Morphine Sulfate 2 mg Q30M PRN IV FOR CHEST PAIN 03/18/25 00:00 Lorazepam (Ativan Inj) 0.5 mg Q4HPRN PRN IV ALCOHOL WITHDRAWAL SYMPTOMS 03/18/25 03:15 03/18/25 11:31 Hydralazine HCl (Apresoline Injection) 10 mg Q6HP PRN IV SBP>160 03/18/25 03:30 03/18/25 15:07 Folic Acid 1 mg/ Multivitamins 10 ml/Magnesium Sulfate 8 meq/ Thiamine HCl 100 mg/Dextrose 1,013.2 ml @ 75 mls/hr DAILY@1800 INJ 03/18/25 18:00 03/18/25 17:25 Carvedilol (Coreg Tablet) 6.25 mg Q12HR PO 03/18/25 22:00 03/18/25 22:17 Furosemide (Lasix Injection) 40 mg DAILY IV 03/19/25 10:00 Pantoprazole Sodium (Protonix) 40 mg BID IV 03/18/25 22:00 03/18/25 22:18 Vital Signs Vital Signs Date Time Temp Pulse Resp B/P (MAP) Pulse Ox O2 Delivery O2 Flow Rate FiO2 03/18/25 22:17 94 110/63 03/18/25 21:00 98.8 17 93 98.8 03/18/25 20:00 Room Air* 0 21 Physical Exam General appearance: Patient is well-developed, well-nourished, in no acute distress. HEENT: Exam shows: Normocephalic, atraumatic, PERRLA, EOMI Neck: Supple, no bruits Chest: Equal chest excursion bilaterally. Breath sounds normal-no rales or wheezes. Heart: Rhythm: Regular rate; no murmur or gallop Abdomen: Exam shows: Soft, nontender, distended Musculoskeletal: No clubbing, no cyanosis, +2-3 lower extremity edema Dermatology: Skin warm, moist. Neurological: Exam shows: Alert and oriented x4, normal speech Available prior records, labs, EKG, rhythm strips reviewed and interpreted Labs/Diagnostic Data Labs Test 03/18/25 18:14 03/18/25 06:07 03/17/25 21:52 03/17/25 19:06 Range/Units Hemoglobin 9.7 #L 13.5-17.5 g/dL Hematocrit 31.5 #L 41.0-53.0 % White Blood Count 7.8 # 4.4-10.8 10^3/uL Red Blood Count 3.38 L 4.5-5.90 10^6/uL Mean Corpuscular Volume 77.1 L 80.0-100.0 fL Mean Corpuscular Hemoglobin 25.0 L 28.0-32.0 pg Mean Corpuscular Hemoglobin Concent 32.4 32.0-36.0 g/dL Red Cell Distribution Width 30.4 H 11.8-14.3 % Platelet Count 342 140-450 10^3/uL Mean Platelet Volume 7.6 6.9-10.8 fL Neutrophils (%) (Auto) 69.0 37.0-80.0 % Lymphocytes (%) (Auto) 15.1 10.0-50.0 % Monocytes (%) (Auto) 11.2 0.0-12.0 % Eosinophils (%) (Auto) 4.0 0.0-7.0 % Basophils (%) (Auto) 0.7 0.0-2.0 % Neutrophils # (Auto) 5.4 1.6-8.6 10 ^3/uL Lymphocytes # (Auto) 1.2 0.4-5.4 10 ^3/uL Monocytes # (Auto) 0.9 0-1.3 10 ^3/uL Eosinophils # (Auto) 0.3 0-0.8 10 ^3/uL Basophils # (Auto) 0.1 0-0.2 10 ^3/uL Nucleated Red Blood Cells 0.1 % Platelet Estimate Adequate Hypochromasia (manual) Slight Anisocytosis (manual) Moderate Microcytosis Slight Target Cells Few Sodium Level 144 136-145 mmol/L Potassium Level 3.3 L 3.5-5.1 mmol/L Chloride Level 110 H 98-107 mmol/L Carbon Dioxide Level 25 20-31 mmol/L Anion Gap 9 5-15 Blood Urea Nitrogen 14 9-23 mg/dL Creatinine 1.88 H 0.700-1.30 mg/dL Glomerular Filtration Rate Calc 37 >90 mL/min BUN/Creatinine Ratio 7.4 L 10.0-20.0 Serum Glucose 89 74-106 mg/dL Calcium Level 8.7 8.7-10.4 mg/dL Magnesium Level 1.8 1.6-2.6 mg/dL Total Bilirubin 0.6 0.2-1.0 mg/dL Aspartate Amino Transferase (AST) 30 13-40 U/L Alanine Aminotransferase (ALT) 17 7-40 U/L Alkaline Phosphatase 64 46-116 U/L Total Protein 5.8 5.7-8.2 g/dL Albumin 3.4 3.2-4.8 g/dL Troponin I High Sensitivity 3 L </=54 ng/L Urine Color Light-yellow Yellow Urine Clarity Clear Clear Urine pH 6.0 5.0-9.0 Urine Specific [place] 1.011 1.001-1.035 Urine Protein Negative Negative Urine Ketones Negative Negative Urine Blood Negative Negative /uL Urine Nitrite Negative Negative Urine Bilirubin Negative Negative Urine Urobilinogen Normal Negative mg/dL Urine Leukocyte Esterase Negative Negative /uL Urine RBC 4 0 - 3 /hpf Urine Microscopic WBC 1 0-3 /HPF Urine Squamous Epithelial Cells None seen <5 /hpf Urine Bacteria None seen None Seen /hpf Urine Glucose Normal Normal mg/dL Test 03/17/25 19:03 03/17/25 18:48 Range/Units Lactic Acid Level 1.3 0.4-2.0 mmol/L B-Type Natriuretic Peptide 176.86 0-100 pg/mL Lipase 35 12-53 U/L Microbiology Date/Time Source Procedure Growth Status 03/17/25 19:03 Blood Blood Culture - Preliminary NO GROWTH AFTER 24 HOURS OF INCU[address]ATION. Resulted CT SCAN ABD PELVIS Impression: 1. Bilateral hydroureteronephrosis extending to the level of the distended urinary bladder. Findings could reflect a bladder outlet obstruction in the appropriate clinical setting. A superimposed infectious / inflammatory process cannot be excluded. Further clinical correlation is suggested. 2. Contracted appearance of the gallbladder, though with cholelithiasis and suggestion of mild pericholecystic edema/wall thickening. 3. There is a 9 mm left lower lobe pulmonary nodule. Comparison with any prior outside imaging is suggested in assessing acuity and interval change. If no prior imaging available, a nonemergent dedicated CT of the chest is suggested in further evaluation. Problems(with codes): (1) Abdominal pain (2) Pitting edema (3) Acute urinary retention (4) Diarrhea (5) Anemia (6) Acute renal failure (7) Alcohol abuse (8) Melena Plan/Recommendation Plan At this point in time patient needs medical stabilization We need to watch for alcohol withdrawals IV Protonix 40 mg q.12 hours Follow serial H&H and transfuse if hemoglobin below seven DC aspirin NSAIDs smoking alcohol Continue to monitor labs I will be standing by for an endoscopy if the patient shows signs of active bleeding otherwise I will arrange it once he is more medically stable Plan discussed with: Patient ROSELINE AVELAR MD Mar 18, 2025 22:53
[2025-03-19] VITALS (8 sets, daily range): BP systolic 119–149; BP diastolic 59–99; PULSE 73–87; RESP 11–19; TEMP 96.4–98.9; O2SAT 92–95
[2025-03-19 00:47] LABS: Hematocrit 25.5 % (41.0-53.0); Hemoglobin 8.0 g/dL (13.5-17.5)
[2025-03-19 06:52] LABS: Hemoglobin 8.3 g/dL (13.5-17.5)
[2025-03-19 06:55] LABS: Hematocrit 26.0 % (41.0-53.0); Mean Corpuscular Hemoglobin 24.5 pg (28.0-32.0); Mean Corpuscular Volume 76.7 fL (80.0-100.0); Nucleated Red Blood Cells % 0.1 %
[2025-03-19 07:01] LABS: INR 1.03 (0.9-1.15); Prothrombin Time 10.9 sec (9.3-11.8)
[2025-03-19 07:04] LABS: Chloride 105 mmol/L (98-107); Potassium 3.8 mmol/L (3.5-5.1); Sodium 141 mmol/L (136-145)
[2025-03-19 07:05] LABS: Anion Gap 7 (5-15); Carbon Dioxide 29 mmol/L (20-31)
[2025-03-19 07:10] LABS: Blood Urea Nitrogen 11 mg/dL (9-23); Glucose 83 mg/dL (74-106)
[2025-03-19 07:15] LABS: Calcium 8.6 mg/dL (8.7-10.4)
[2025-03-19 07:28] LABS: BUN/Creatinine Ratio 10.0 (10.0-20.0)
[2025-03-19 07:49] LABS: Alkaline Phosphatase 58.0 U/L (46-116)
[2025-03-19 07:50] LABS: Alanine Aminotransferase 18.0 U/L (7-40); Bilirubin, Direct 0.2 mg/dL (<0.3); Bilirubin, Total 0.4 mg/dL (0.2-1.0); Total Protein 5.0 g/dL (5.7-8.2)
[2025-03-19 07:53] LABS: Albumin 3.0 g/dL (3.2-4.8)
--- NOTE | 2025-03-19 08:49 | DVHPN2 ---
Progress Note Date Seen: Mar 19, 2025 Medical Necessity Reason Pt with a Central, PICC or Fol: Yes The following are medically ne: Zarco Catheter Subjective Patient reports: No new complaints Review of Systems: Deferred Objective vital signs Vital Sign Date Time Temp Pulse Resp B/P (MAP) Pulse Ox O2 Delivery O2 Flow Rate FiO2 03/19/25 08:00 Room Air* 0 21 03/19/25 05:00 97.2 73 17 129/80 (96) 93 97.2 Total Intake and Output 03/18/25 03/18/25 03/19/25 15:00 23:00 07:00 Intake Total 50 ml 250 ml 480 ml Output Total 4800 ml 700 ml 1400 ml Balance -4750 ml -450 ml -920 ml medications Current Medications Medications Dose Ordered Sig/Aaron Route Start Time Stop Time Status Last Admin Dose Admin Ceftriaxone Sodium 50 ml @ 100 mls/hr DAILY@09 IV 03/18/25 09:00 03/18/25 10:10 100 MLS/HR Tamsulosin HCl 0.4 mg QPM PO 03/18/25 18:00 03/18/25 17:25 0.4 MG Sodium Chloride 10 ml Q8HR IV 03/18/25 06:00 03/19/25 06:13 10 ML Acetaminophen/ Hydrocodone Bitart 1 tab Q4HP PRN PO 03/17/25 22:45 Ondansetron HCl 4 mg Q4HP PRN IV 03/17/25 22:45 03/18/25 11:31 4 MG Docusate Sodium 100 mg BIDPRN PRN PO 03/17/25 22:45 Acetaminophen 650 mg Q6HP PRN PO 03/17/25 22:45 Morphine Sulfate 2 mg Q4HPRN PRN IV 03/17/25 22:45 03/18/25 11:31 2 MG Nitroglycerin 0.4 mg Q5MINP PRN SL 03/18/25 00:00 Morphine Sulfate 2 mg Q30M PRN IV 03/18/25 00:00 Lorazepam 0.5 mg Q4HPRN PRN IV 03/18/25 03:15 03/18/25 11:31 0.5 MG Hydralazine HCl 10 mg Q6HP PRN IV 03/18/25 03:30 03/18/25 15:07 10 MG Folic Acid 1 mg/ Multivitamins 10 ml/Magnesium Sulfate 8 meq/ Thiamine HCl 100 mg/Dextrose 1,013.2 ml @ 75 mls/hr DAILY@1800 INJ 03/18/25 18:00 03/18/25 17:25 75 MLS/HR Carvedilol 6.25 mg Q12HR PO 03/18/25 22:00 03/18/25 22:17 6.25 MG Furosemide 40 mg DAILY IV 03/19/25 10:00 Pantoprazole Sodium 40 mg BID IV 03/18/25 22:00 03/18/25 22:18 40 MG Examination: GENERAL:Normal, HEENT:Normal, NECK:Normal, LUNGS:Normal, CVS:Normal, ABDOMEN:Normal, MSK:Abnormal, SKIN:Normal, NEURO:Normal, :Normal laboratory and microbiology Laboratory Tests 03/19/25 05:17 Test 03/19/25 05:17 Range/Units Serum Glucose 83 74-106 mg/dL Microbiology Date/Time Source Procedure Growth Status 03/17/25 19:03 Blood Blood Culture - Preliminary NO GROWTH AFTER 24 HOURS OF INCUBATION. Resulted Problem List/Assessment/Plan Problem List/Assessment/Plan acute kidney injury likely secondary to obstructive etiology bilateral hydroureteronephrosis extending to level of distended urinary bladder Possible bladder outlet obstruction pulm nodule HTN recs zarco cath lasix iv gentle as pedal edema + will follow closely UA looks wnl urology consult Plan discussed with: Patient My Orders My Orders Orders - JACQUELINE MERLOS MD Procedure Category Date Status Time Insert/Manage Urinary DANA 03/18/25 In Process Catheter 11:43 Furosemide Injection PHA 03/19/25 In Process (Lasix Injection) 10:00 JACQUELINE MERLOS MD Mar 19, 2025 08:49
--- NOTE | 2025-03-19 08:49 | ECG ---
[facility] Test Date: 2025-03-18 Test Time: 08:36:49 Pat Name: LIYAH ALDANA Department: ED Room: 0218T A Gender: M Senior Web Engineer: CHICHI : 1950 Requested By: MICHAEL ARRIAGA Order Number: [id number] Reading MD: Kun Weir Measurements Intervals [place] Rate: 81 P: 43 FL: 130 QRS: 37 QRSD: 90 T: 22 QT: 391 QTc: 454 Interpretive Statements Sinus rhythm Electronically Signed On 03-20-2025 19:25:49 PDT by Kun Weir Please click the below link to view image of tracing.
[2025-03-19] MEDS: FUROSEMIDE 40 MG/4 ML VIAL IV SCH (10:45)
--- NOTE | 2025-03-19 11:00 | DVHINCON2 ---
Date of service: Mar 19, 2025 Referring Physician Hospitalist Reason for Consultation Bilateral hydronephrosis BPH History of Present Illness 74-year-old male with past medical history of hypertension and enlarged prostate presents with complaints of abdominal pain and diarrhea. Information in this HPI is limited due to the patient being a poor historian. Patient's brother initially reported to the emergency department that the patient is alcohol dependent, has been having diarrhea with black tarry stools x2 weeks. Patient is endorsing lower abdominal pain with occasional episodes of incontinence. Patient's brother also endorsed he has been drinking heavily the last couple of weeks. Patient states he only drinks a few beers every day. During the emergency department evaluation CBC: W11.2, H&H 9.1/28.6, PLT 288. Na 144, K3.9, BUN 18, creatinine 2.25, GFR 30. CT abdomen and pelvis bilateral hydr oureteronephrosis extending to the level of the distended urinary bladder findings reflect bladder outlet obstruction. Contracted appearance of the gallbladder with cholelithiasis and suggestion of mild pericholecystic edema/wall thickening. At this time patient denies fevers, chills, dizziness, shortness of breath, chest pain, palpitations, upper abdominal pain. Heck catheter in place. Repeat kidney ultrasound shows [id number] bilateral hydronephrosis. Past Medical History Irritable bowel disease Allergies: Coded Allergies: NO KNOWN ALLERGIES (Unverified , 03/17/25) Current Medications Current Medications Medications (Trade) Dose Ordered Sig/Aaron Route PRN Reason Start Time Stop Time Status Last Admin Tamsulosin HCl (Flomax) 0.4 mg QPM PO 03/18/25 18:00 03/18/25 17:25 Folic Acid 1 mg/ Multivitamins 10 ml/Magnesium Sulfate 8 meq/ Thiamine HCl 100 mg/Dextrose 1,013.2 ml @ 75 mls/hr DAILY@1800 INJ 03/18/25 18:00 03/18/25 17:25 Carvedilol (Coreg Tablet) 6.25 mg Q12HR PO 03/18/25 22:00 03/19/25 10:45 Furosemide (Lasix Injection) 40 mg DAILY IV 03/19/25 10:00 03/19/25 10:45 Pantoprazole Sodium (Protonix) 40 mg BID IV 03/18/25 22:00 03/19/25 10:45 Review of Systems Constitutional: No: Fever, Chills, Sweats, Weakness, Malaise, Other Eyes: No: Pain, Vision change, Conjunctivae inflammation, Eyelid inflammation, Other, Redness ENT: No: Ear pain, Ear discharge, Nose pain, Nose discharge, Nose congestion, Mouth pain, Mouth swelling, Throat pain, Throat swelling, Other Cardiovascular: Edema; No: Chest Pain, Palpitations, Orthopnea, Paroxysmal Noc. Dyspnea, Lt Headedness, Other Gastrointestinal: Abdominal Pain; No: Nausea, Vomiting, Diarrhea, Constipation, Melena, Hematochezia, Other Genitourinary: No Dysuria, No Frequency; Incontinence; No Hematuria; Retention; No Other Musculoskeletal: No: other, neck pain, shoulder pain, arm pain, back pain, hand pain, leg pain, foot pain Skin: No: Rash, Lesions, Jaundice, Bruising, Other Neurological: No: Weakness, Numbness, Incoordination, Change in speech, Confusion, Seizures, Other Allergies: Coded Allergies: NO KNOWN ALLERGIES (Unverified , 03/17/25) Medications Current Medications Medications Dose Ordered Sig/Aaron Route Start Time Stop Time Status Last Admin Dose Admin Ceftriaxone Sodium 50 ml @ 100 mls/hr DAILY@09 IV 03/18/25 09:00 Tamsulosin HCl 0.4 mg QPM PO 03/18/25 18:00 Pantoprazole Sodium 40 mg DAILY IV 03/18/25 10:00 Sodium Chloride 10 ml Q8HR IV 03/18/25 06:00 Acetaminophen/ Hydrocodone Bitart 1 tab Q4HP PRN PO 03/17/25 22:45 Ondansetron HCl 4 mg Q4HP PRN IV 03/17/25 22:45 Docusate Sodium 100 mg BIDPRN PRN PO 03/17/25 22:45 Acetaminophen 650 mg Q6HP PRN PO 03/17/25 22:45 Morphine Sulfate 2 mg Q4HPRN PRN IV 03/17/25 22:45 Nitroglycerin 0.4 mg Q5MINP PRN SL 03/18/25 00:00 Morphine Sulfate 2 mg Q30M PRN IV 03/18/25 00:00 Vital Signs Vital Signs Date Time Temp Pulse Resp B/P (MAP) Pulse Ox O2 Delivery O2 Flow Rate FiO2 03/19/25 10:45 137/77 03/19/25 10:45 73 03/19/25 09:00 96.9 17 95 96.9 03/19/25 08:00 Room Air* 0 21 Physical Exam Vital Signs Date Time Temp Pulse Resp B/P (MAP) Pulse Ox O2 Delivery O2 Flow Rate FiO2 03/18/25 01:19 98.2 95 17 165/88 (113) 96 98.2 03/17/25 19:12 Room Air General Appearance: Alert (To self and place. ), Cooperative, mild distress HEENT: Atraumatic, PERRLA Respiratory: Clear to auscultation, Normal air movement Cardiovascular: Regular rate, Normal S1, Normal S2 Abdominal: Normal bowel sounds, Soft, Other (Diffuse lower abdominal tenderness) : Heck Extremities: No cyanosis, Other (BLE 3+ pitting edema) Neuro: Normal speech Psych/Mental Status: Mental status NL, Mood NL Labs/Diagnostic Data Labs Test 03/19/25 05:17 03/18/25 06:07 03/17/25 21:52 03/17/25 19:06 Range/Units White Blood Count 9.1 4.4-10.8 10^3/uL Red Blood Count 3.39 L 4.5-5.90 10^6/uL Hemoglobin 8.3 L 13.5-17.5 g/dL Hematocrit 26.0 L 41.0-53.0 % Mean Corpuscular Volume 76.7 L 80.0-100.0 fL Mean Corpuscular Hemoglobin 24.5 L 28.0-32.0 pg Mean Corpuscular Hemoglobin Concent 32.0 32.0-36.0 g/dL Red Cell Distribution Width 30.3 H 11.8-14.3 % Platelet Count 299 140-450 10^3/uL Mean Platelet Volume 7.6 6.9-10.8 fL Neutrophils (%) (Auto) 60.6 37.0-80.0 % Lymphocytes (%) (Auto) 23.1 10.0-50.0 % Monocytes (%) (Auto) 13.5 H 0.0-12.0 % Eosinophils (%) (Auto) 2.4 0.0-7.0 % Basophils (%) (Auto) 0.4 0.0-2.0 % Neutrophils # (Auto) 5.5 1.6-8.6 10 ^3/uL Lymphocytes # (Auto) 2.1 0.4-5.4 10 ^3/uL Monocytes # (Auto) 1.2 0-1.3 10 ^3/uL Eosinophils # (Auto) 0.2 0-0.8 10 ^3/uL Basophils # (Auto) 0 0-0.2 10 ^3/uL Nucleated Red Blood Cells 0.1 % Prothrombin Time 10.9 9.3-11.8 sec Prothrombin Time INR 1.03 0.9-1.15 Sodium Level 141 136-145 mmol/L Potassium Level 3.8 3.5-5.1 mmol/L Chloride Level 105 98-107 mmol/L Carbon Dioxide Level 29 20-31 mmol/L Anion Gap 7 5-15 Blood Urea Nitrogen 11 9-23 mg/dL Creatinine 1.10 0.700-1.30 mg/dL Glomerular Filtration Rate Calc 71 >90 mL/min BUN/Creatinine Ratio 10.0 10.0-20.0 Serum Glucose 83 74-106 mg/dL Calcium Level 8.6 L 8.7-10.4 mg/dL Total Bilirubin 0.4 0.2-1.0 mg/dL Direct Bilirubin 0.2 <0.3 mg/dL Aspartate Amino Transferase (AST) 26 13-40 U/L Alanine Aminotransferase (ALT) 18 7-40 U/L Alkaline Phosphatase 58 46-116 U/L Ammonia 34 H 11-32 umol/L Total Protein 5.0 L 5.7-8.2 g/dL Albumin 3.0 L 3.2-4.8 g/dL Platelet Estimate Adequate Hypochromasia (manual) Slight Anisocytosis (manual) Moderate Microcytosis Slight Target Cells Few Magnesium Level 1.8 1.6-2.6 mg/dL Troponin I High Sensitivity 3 L </=54 ng/L Urine Color Light-yellow Yellow Urine Clarity Clear Clear Urine pH 6.0 5.0-9.0 Urine Specific Brillion 1.011 1.001-1.035 Urine Protein Negative Negative Urine Ketones Negative Negative Urine Blood Negative Negative /uL Urine Nitrite Negative Negative Urine Bilirubin Negative Negative Urine Urobilinogen Normal Negative mg/dL Urine Leukocyte Esterase Negative Negative /uL Urine RBC 4 0 - 3 /hpf Urine Microscopic WBC 1 0-3 /HPF Urine Squamous Epithelial Cells None seen <5 /hpf Urine Bacteria None seen None Seen /hpf Urine Glucose Normal Normal mg/dL Test 7/11/25 19:03 03/17/25 18:48 Range/Units Lactic Acid Level 1.3 0.4-2.0 mmol/L B-Type Natriuretic Peptide 176.86 0-100 pg/mL Lipase 35 12-53 U/L Microbiology Date/Time Source Procedure Growth Status 03/17/25 19:03 Blood Blood Culture - Preliminary NO GROWTH AFTER 24 HOURS OF INCUBATION. Resulted Assessment Bilateral hydronephrosis with distended bladder and obstructing prostate Plan/Recommendation PSA Heck to gravity with leg bag for discharge Repeat Kidney US done Creatinine improving with Heck Outpatient cystoscopy and urodynamics to be arranged Plan discussed with: Patient, Other CORDELIA JEFFERSON MD Mar 19, 2025 11:00
--- NOTE | 2025-03-19 11:54 | DVHPN2 ---
Consult Progress Note Subjective Patient reports: Feels better Objective vital signs Vital Sign Date Time Temp Pulse Resp B/P (MAP) Pulse Ox O2 Delivery O2 Flow Rate FiO2 03/19/25 10:45 137/77 03/19/25 10:45 73 03/19/25 09:00 96.9 17 95 96.9 03/19/25 08:00 Room Air* 0 21 Total Intake and Output 03/18/25 03/18/25 03/19/25 15:00 23:00 07:00 Intake Total 50 ml 250 ml 480 ml Output Total 4800 ml 700 ml 1400 ml Balance -4750 ml -450 ml -920 ml medications Current Medications Medications Dose Ordered Sig/Aaron Route Start Time Stop Time Status Last Admin Dose Admin Ceftriaxone Sodium 50 ml @ 100 mls/hr DAILY@09 IV 03/18/25 09:00 03/19/25 10:43 100 MLS/HR Tamsulosin HCl 0.4 mg QPM PO 03/18/25 18:00 03/18/25 17:25 0.4 MG Sodium Chloride 10 ml Q8HR IV 03/18/25 06:00 03/19/25 06:13 10 ML Acetaminophen/ Hydrocodone Bitart 1 tab Q4HP PRN PO 03/17/25 22:45 Ondansetron HCl 4 mg Q4HP PRN IV 03/17/25 22:45 03/18/25 11:31 4 MG Docusate Sodium 100 mg BIDPRN PRN PO 03/17/25 22:45 Acetaminophen 650 mg Q6HP PRN PO 03/17/25 22:45 Morphine Sulfate 2 mg Q4HPRN PRN IV 03/17/25 22:45 03/18/25 11:31 2 MG Nitroglycerin 0.4 mg Q5MINP PRN SL 03/18/25 00:00 Morphine Sulfate 2 mg Q30M PRN IV 03/18/25 00:00 Lorazepam 0.5 mg Q4HPRN PRN IV 03/18/25 03:15 03/18/25 11:31 0.5 MG Hydralazine HCl 10 mg Q6HP PRN IV 03/18/25 03:30 03/18/25 15:07 10 MG Folic Acid 1 mg/ Multivitamins 10 ml/Magnesium Sulfate 8 meq/ Thiamine HCl 100 mg/Dextrose 1,013.2 ml @ 75 mls/hr DAILY@1800 INJ 03/18/25 18:00 03/18/25 17:25 75 MLS/HR Carvedilol 6.25 mg Q12HR PO 03/18/25 22:00 03/19/25 10:45 6.25 MG Furosemide 40 mg DAILY IV 03/19/25 10:00 03/19/25 10:45 40 MG Pantoprazole Sodium 40 mg BID IV 03/18/25 22:00 03/19/25 10:45 40 MG Examination: CVS:Normal (Telemetry reviewed, consistent with sinus rhythm at 73 beats per minute.), CVS:Abnormal (+ pedal edema) laboratory and microbiology Laboratory Tests 03/19/25 05:17 Test 03/19/25 05:17 Range/Units Serum Glucose 83 74-106 mg/dL Problem List/Assessment/Plan Problem List/Assessment/Plan Assessment * R/O CHF - BNP 176, CXR negative for acute congestion/edema. Breathing stable on room air. Echo with preserved LV and RV function, no significant valvular structural abnormalities. EF 55% overall normal echo. * Uncontrolled HTN - Carvedilol 6.25 mg twice daily. Will hold off BRIAN/ARB due to ALISON. * BLE - US negative for DVT. Continue gentle diuresis with Lasix 40 mg IV daily per Nephrology.. * Abdominal PAin, Diarrhea - Management per primary team. * ALISON, underline CKD - Likely in setting of bladder outlet obstruction, BPH. Continue monitoring. Nephrology on board. * Bilateral hydroureteronephrosis, bladder outlet obstruction, UTI - on IV antibiotics, Heck catheter in place, urology on board * ETOH abuse - Recommend CIWA protocol. Advised against. * Hypokalemia - Monitor and replce electrolytes Case Discussed with Dr Wills. Normal EF on echo, no significant valvular structural abnormalities. Diuresis with Lasix per Nephrology. There is no further cardiac work-up indicated at this time. Thank you for allowing us to participate in this patient's care. Will sign off. This medical document was created using an electronic medical record system with voice recognition software and computerized dictation system. Although this document has been carefully reviewed, there might still be some phonetic and typographical errors. Occasional wrong-word or ``sound-alike substitutions may have occurred due to the inherent limitations of voice recognition software. These areas are purely typographical due to imperfections of the software programs and do not reflect any compromise in the patient's medical care. Please read the chart carefully and recognize, using context, where these substitutions have occurred. Thank you for allowing me to participate in the management of this patient. The treatment plan was discussed with and agreed upon by patient/family including requesting consultants and ordering of imaging/procedures. Plan discussed with: Patient Date of Service: Mar 19, 2025 Billing Provider: MICHAEL ARRIAGA Common Visit Codes: [id number] INP/OBS CARE(HIGH) MICHAEL ARRIAGA Mar 19, 2025 11:54
--- NOTE | 2025-03-19 13:15 | DVH ---
BILATERAL RENAL ULTRASOUND CLINICAL HISTORY: Bilateral hydronephrosis COMPARISON: CT 03/17/2025 TECHNIQUE: High-resolution real-time grayscale and color flow imaging is performed. FINDINGS: Right kidney: Measures 13.2 cm in length. Normal cortical thickness and echogenicity. Hysk-xq-jyrncaj e hydronephrosis. Left kidney: Measures approximately 12.7 cm in length. Normal cortical thickness and echogenicity. Mi el-hw-kyadvglt hydronephrosis. Bladder: Appears to be collapsed around the Heck catheter. IMPRESSION: Ckwz-dd-cfrscucs bilateral hydronephrosis. HS:Y
--- NOTE | 2025-03-19 13:29 | DVHPN2 ---
Progress Note - Dictate Date Seen: Mar 19, 2025 Medical Necessity Reason Pt with a Central, PICC or Fol: Yes The following are medically ne: Heck Catheter Subjective Clinically stable. Kidney function is normal. Evaluated by Urology and repeat ultrasound kidneys show [id number] hydronephrosis. Hemoglobin is stable without any evidence of precipitous drop or active bleeding. vital signs Vital Sign Date Time Temp Pulse Resp B/P (MAP) Pulse Ox O2 Delivery O2 Flow Rate FiO2 03/19/25 10:45 137/77 03/19/25 10:45 73 03/19/25 09:00 96.9 17 95 96.9 03/19/25 08:00 Room Air* 0 21 Total Intake and Output 03/18/25 03/18/25 03/19/25 15:00 23:00 07:00 Intake Total 50 ml 250 ml 480 ml Output Total 4800 ml 700 ml 1400 ml Balance -4750 ml -450 ml -920 ml medications Current Medications Medications Dose Ordered Sig/Aaron Route Start Time Stop Time Status Last Admin Dose Admin Ceftriaxone Sodium 50 ml @ 100 mls/hr DAILY@09 IV 03/18/25 09:00 03/19/25 10:43 100 MLS/HR Tamsulosin HCl 0.4 mg QPM PO 03/18/25 18:00 03/18/25 17:25 0.4 MG Sodium Chloride 10 ml Q8HR IV 03/18/25 06:00 03/19/25 06:13 10 ML Acetaminophen/ Hydrocodone Bitart 1 tab Q4HP PRN PO 03/17/25 22:45 Ondansetron HCl 4 mg Q4HP PRN IV 03/17/25 22:45 03/18/25 11:31 4 MG Docusate Sodium 100 mg BIDPRN PRN PO 03/17/25 22:45 Acetaminophen 650 mg Q6HP PRN PO 03/17/25 22:45 Morphine Sulfate 2 mg Q4HPRN PRN IV 03/17/25 22:45 03/18/25 11:31 2 MG Nitroglycerin 0.4 mg Q5MINP PRN SL 03/18/25 00:00 Morphine Sulfate 2 mg Q30M PRN IV 03/18/25 00:00 Lorazepam 0.5 mg Q4HPRN PRN IV 03/18/25 03:15 03/18/25 11:31 0.5 MG Hydralazine HCl 10 mg Q6HP PRN IV 03/18/25 03:30 03/18/25 15:07 10 MG Folic Acid 1 mg/ Multivitamins 10 ml/Magnesium Sulfate 8 meq/ Thiamine HCl 100 mg/Dextrose 1,013.2 ml @ 75 mls/hr DAILY@1800 INJ 03/18/25 18:00 03/18/25 17:25 75 MLS/HR Carvedilol 6.25 mg Q12HR PO 03/18/25 22:00 03/19/25 10:45 6.25 MG Furosemide 40 mg DAILY IV 03/19/25 10:00 03/19/25 10:45 40 MG Pantoprazole Sodium 40 mg BID IV 03/18/25 22:00 03/19/25 10:45 40 MG objective Comfortable in bed. HEENT neck supple no JVD. Heart regular rate and rhythm. Lungs without rales wheezes. Abdomen soft nontender positive bowel sounds. Extremities no edema positive pulses. laboratory and microbiology Laboratory Tests 03/19/25 05:17 Test 03/19/25 05:17 Range/Units Serum Glucose 83 74-106 mg/dL Assessment/Plan Overall clinically stable. Continue current medical management as he is on. Pain she will counseled regarding alcohol use and cessation. Continue follow labs tomorrow. We will change Heck catheter leg bag in the morning and if he remains stable consider discharge home with outpatient follow up with the Urology. Discussed with the nurse and patient regarding care plan. Problems(with codes): (1) Melena (2) Alcohol abuse (3) Acute renal failure (4) Acute urinary retention Dietary Evaluation Review Comments: 1) Initiate Ensure Clear qd 2) Encourage optimal PO intake 3) Advance to cardiac diet when medically feasible 4) Refer to outpatient RD for weight management 5) Follow-up with gastroenterology, urology, nephrology, and cardiology 6) Follow-up with social security benefits interviewer r/t ETOH abuse 4) Continue to monitor I&O, labs, and skin integrity Expected Outcomes/Goals: 1) appetite and labs to improve 2) diet to advance 3) f/u in 3-5 days Plan discussed with: SUZIE Perez MD Mar 19, 2025 13:29
--- NOTE | 2025-03-19 17:55 | DVHPN2 ---
Progress Note - Dictate Date Seen: Mar 19, 2025 Medical Necessity Reason Pt with a Central, PICC or Fol: Yes The following are medically ne: Heck Catheter Subjective No active bleeding H&H stable vital signs Vital Sign Date Time Temp Pulse Resp B/P (MAP) Pulse Ox O2 Delivery O2 Flow Rate FiO2 03/19/25 17:00 96.8 85 17 136/71 (92) 95 96.8 03/19/25 08:00 Room Air* 0 21 Total Intake and Output 03/18/25 03/18/25 03/19/25 15:00 23:00 07:00 Intake Total 50 ml 250 ml 480 ml Output Total 4800 ml 700 ml 1400 ml Balance -4750 ml -450 ml -920 ml medications Current Medications Medications Dose Ordered Sig/Aaron Route Start Time Stop Time Status Last Admin Dose Admin Ceftriaxone Sodium 50 ml @ 100 mls/hr DAILY@09 IV 03/18/25 09:00 03/19/25 10:43 100 MLS/HR Tamsulosin HCl 0.4 mg QPM PO 03/18/25 18:00 03/19/25 17:49 0.4 MG Sodium Chloride 10 ml Q8HR IV 03/18/25 06:00 03/19/25 15:26 10 ML Acetaminophen/ Hydrocodone Bitart 1 tab Q4HP PRN PO 03/17/25 22:45 Ondansetron HCl 4 mg Q4HP PRN IV 03/17/25 22:45 03/18/25 11:31 4 MG Docusate Sodium 100 mg BIDPRN PRN PO 03/17/25 22:45 Acetaminophen 650 mg Q6HP PRN PO 03/17/25 22:45 Morphine Sulfate 2 mg Q4HPRN PRN IV 03/17/25 22:45 03/18/25 11:31 2 MG Nitroglycerin 0.4 mg Q5MINP PRN SL 03/18/25 00:00 Morphine Sulfate 2 mg Q30M PRN IV 03/18/25 00:00 Lorazepam 0.5 mg Q4HPRN PRN IV 03/18/25 03:15 03/18/25 11:31 0.5 MG Hydralazine HCl 10 mg Q6HP PRN IV 03/18/25 03:30 03/18/25 15:07 10 MG Folic Acid 1 mg/ Multivitamins 10 ml/Magnesium Sulfate 8 meq/ Thiamine HCl 100 mg/Dextrose 1,013.2 ml @ 75 mls/hr DAILY@1800 INJ 03/18/25 18:00 03/19/25 17:47 75 MLS/HR Carvedilol 6.25 mg Q12HR PO 03/18/25 22:00 03/19/25 10:45 6.25 MG Furosemide 40 mg DAILY IV 03/19/25 10:00 03/19/25 10:45 40 MG Pantoprazole Sodium 40 mg BID IV 03/18/25 22:00 03/19/25 10:45 40 MG objective Comfortable in bed. HEENT neck supple no JVD. Heart regular rate and rhythm. Lungs without rales wheezes. Abdomen soft nontender positive bowel sounds. Extremities no edema laboratory and microbiology Laboratory Tests 03/19/25 05:17 Test 03/19/25 05:17 Range/Units Serum Glucose 83 74-106 mg/dL Problems(with codes): (1) Melena (2) Alcohol abuse (3) Anemia (4) Diarrhea Prognosis Plan At this point in time patient needs medical stabilization We need to watch for alcohol withdrawals IV Protonix 40 mg q.12 hours D/C H/H q 12 hrs,daily labs and transfuse if hemoglobin below seven DC aspirin NSAIDs smoking alcohol Continue to monitor labs,advance to full liquid diet I will be standing by for an endoscopy if the patient shows signs of active bleeding otherwise I will arrange it once he is more medically stable Dietary Evaluation Review Comments: 1) Initiate Ensure Clear qd 2) Encourage optimal PO intake 3) Advance to cardiac diet when medically feasible 4) Refer to outpatient RD for weight management 5) Follow-up with gastroenterology, urology, nephrology, and cardiology 6) Follow-up with high school social science teacher r/t ETOH abuse 4) Continue to monitor I&O, labs, and skin integrity Expected Outcomes/Goals: 1) appetite and labs to improve 2) diet to advance 3) f/u in 3-5 days Plan discussed with: Patient, Other (None) ROSELINE AVELAR MD Mar 19, 2025 17:55
[2025-03-20] VITALS (8 sets, daily range): BP systolic 111–130; BP diastolic 66–71; PULSE 67–87; RESP 16–19; TEMP 97.3–98.6; O2SAT 92–94
[2025-03-20 07:27] LABS: Chloride 104 mmol/L (98-107); Sodium 139 mmol/L (136-145)
[2025-03-20 07:28] LABS: Anion Gap 8 (5-15); Calcium 8.7 mg/dL (8.7-10.4); Carbon Dioxide 27 mmol/L (20-31); Hemoglobin 8.8 g/dL (13.5-17.5)
[2025-03-20 07:31] LABS: Potassium 3.2 mmol/L (3.5-5.1)
[2025-03-20 07:33] LABS: BUN/Creatinine Ratio 8.0 (10.0-20.0); Glucose 91 mg/dL (74-106)
[2025-03-20 07:37] LABS: Blood Urea Nitrogen 7 mg/dL (9-23); Hematocrit 27.2 % (41.0-53.0); Mean Corpuscular Hemoglobin 24.9 pg (28.0-32.0); Mean Corpuscular Volume 76.6 fL (80.0-100.0)
[2025-03-20 08:12] LABS: Anisocytosis Slight; Total Cells Counted 100.0 (100)
--- NOTE | 2025-03-20 10:44 | DVHPN2 ---
Progress Note Date Seen: Mar 20, 2025 Medical Necessity Reason Pt with a Central, PICC or Fol: Yes The following are medically ne: [place] Catheter Reason for zarco catheter: Bladder Retention/Obstruc Subjective Review of Systems: HEENT:Normal Objective vital signs Vital Sign Date Time Temp Pulse Resp B/P (MAP) Pulse Ox O2 Delivery O2 Flow Rate FiO2 03/20/25 09:23 119/68 03/20/25 09:23 75 03/20/25 09:00 97.3 17 94 97.3 03/19/25 20:00 Room Air* 0 21 Total Intake and Output 03/19/25 03/19/25 03/20/25 15:00 23:00 07:00 Intake Total 50 ml 854 ml Output Total 3100 ml 800 ml Balance 50 ml -2246 ml -800 ml medications Current Medications Medications Dose Ordered Sig/Aaron Route Start Time Stop Time Status Last Admin Dose Admin Ceftriaxone Sodium 50 ml @ 100 mls/hr DAILY@09 IV 03/18/25 09:00 03/20/25 09:23 100 MLS/HR Tamsulosin HCl 0.4 mg QPM PO 03/18/25 18:00 03/19/25 17:49 0.4 MG Sodium Chloride 10 ml Q8HR IV 03/18/25 06:00 03/20/25 05:18 10 ML Acetaminophen/ Hydrocodone Bitart 1 tab Q4HP PRN PO 03/17/25 22:45 Ondansetron HCl 4 mg Q4HP PRN IV 03/17/25 22:45 03/18/25 11:31 4 MG Docusate Sodium 100 mg BIDPRN PRN PO 03/17/25 22:45 Acetaminophen 650 mg Q6HP PRN PO 03/17/25 22:45 Morphine Sulfate 2 mg Q4HPRN PRN IV 03/17/25 22:45 03/18/25 11:31 2 MG Nitroglycerin 0.4 mg Q5MINP PRN SL 03/18/25 00:00 Morphine Sulfate 2 mg Q30M PRN IV 03/18/25 00:00 Lorazepam 0.5 mg Q4HPRN PRN IV 03/18/25 03:15 03/18/25 11:31 0.5 MG Hydralazine HCl 10 mg Q6HP PRN IV 03/18/25 03:30 03/18/25 15:07 10 MG Folic Acid 1 mg/ Multivitamins 10 ml/Magnesium Sulfate 8 meq/ Thiamine HCl 100 mg/Dextrose 1,013.2 ml @ 75 mls/hr DAILY@1800 INJ 03/18/25 18:00 03/19/25 17:47 75 MLS/HR Carvedilol 6.25 mg Q12HR PO 03/18/25 22:00 03/20/25 09:23 6.25 MG Furosemide 40 mg DAILY IV 03/19/25 10:00 03/20/25 09:23 40 MG Pantoprazole Sodium 40 mg BID IV 03/18/25 22:00 03/20/25 09:23 40 MG Examination: GENERAL:Normal laboratory and microbiology Laboratory Tests 03/20/25 06:03 Test 03/20/25 06:03 Range/Units Serum Glucose 91 74-106 mg/dL Microbiology Date/Time Source Procedure Growth Status 03/19/25 00:30 Urine - [place] Urine Culture - Preliminary Resulted 03/17/25 19:03 Blood Blood Culture - Preliminary NO GROWTH AFTER 48 HOURS OF INCUBATION. Resulted Problem List/Assessment/Plan Problem List/Assessment/Plan acute kidney injury likely secondary to obstructive etiology bilateral hydroureteronephrosis extending to level of distended urinary bladder Possible bladder outlet obstruction pulm nodule HTN [place] resolved lasix completed aldactone started avoid low BP zarco cath, due to large prostate. Urology rec outpatient cystoscopy Plan discussed with: Patient Dietary Evaluation Review Comments: 1) Initiate Ensure Clear qd 2) Encourage optimal PO intake 3) Advance to cardiac diet when medically feasible 4) Refer to outpatient RD for weight management 5) Follow-up with gastroenterology, urology, nephrology, and cardiology 6) Follow-up with psychiatric social worker supervisor r/t ETOH abuse 4) Continue to monitor I&O, labs, and skin integrity Expected Outcomes/Goals: 1) appetite and labs to improve 2) diet to advance 3) f/u in 3-5 days JOANN BOND MD Mar 20, 2025 10:44
[2025-03-20] MEDS: SUCRALFATE 1 GM/10 ML ORAL SUSP PO SCH (11:08)
[2025-03-20] MEDS: LACTULOSE 20Gm/30ML SOLN PO ONE (11:08)
[2025-03-20 11:20] LABS: Hepatitis A Total Antibody Positive (Negative); Hepatitis B Surface Antigen Negative (Negative); Hepatitis C Antibody Negative (Negative)
--- NOTE | 2025-03-20 13:14 | DVHPN2 ---
Subjective Clinically stable. Hemoglobin is stable. Evaluated by Nephrology and GI. Social Service to arrange home health and Heck catheter care. Changes from previous H/P or p: No Changes Eyes: No Pain, No Vision change, No Conjunctivae inflammation, No Eyelid inflammation, No Other, No Redness ENT: No Ear pain, No Ear discharge, No Nose pain, No Nose discharge, No Nose congestion, No Mouth pain, No Mouth swelling, No Throat pain, No Throat swelling, No Other Cardiovascular: No Chest Pain, No Palpitations, No Orthopnea, No Paroxysmal Noc. Dyspnea; Edema; No Lt Headedness, No Other Gastrointestinal: No Nausea, No Vomiting; Abdominal Pain; No Diarrhea, No Constipation, No Melena, No Hematochezia, No Other Genitourinary: No Dysuria, No Frequency; Incontinence; No Hematuria; Retention; No Other Musculoskeletal: No other, No neck pain, No shoulder pain, No arm pain, No back pain, No hand pain, No leg pain, No foot pain Skin: No Rash, No Lesions, No Jaundice, No Bruising, No Other Objective Vitals Vital Signs Date Time Temp Pulse Resp B/P (MAP) Pulse Ox O2 Delivery O2 Flow Rate FiO2 03/20/25 10:23 62 117/62 03/20/25 09:00 97.3 17 94 97.3 03/20/25 08:00 Room Air* 0 21 Intake/Output Intake and Output 03/20/25 07:00 Intake Total 904 ml Output Total 3900 ml Balance -2996 ml Intake Oral 854 ml IV Total 50 ml Output Urine Total 3900 ml Exam Comfortable in bed. Alert awake oriented to place and person. Counseled and educated regarding alcohol cessation. HEENT neck supple no JVD. Heart regular rate and rhythm S1-S2. Lungs without rales wheezes. Abdomen soft nontender positive bowel sounds. Extremities no edema positive pulses Medications Current Medications Medications Dose Ordered Sig/Aaron Route Start Time Stop Time Status Last Admin Dose Admin Ceftriaxone Sodium 50 ml @ 100 mls/hr DAILY@09 IV 03/18/25 09:00 03/20/25 09:23 100 MLS/HR Tamsulosin HCl 0.4 mg QPM PO 03/18/25 18:00 03/19/25 17:49 0.4 MG Sodium Chloride 10 ml Q8HR IV 03/18/25 06:00 03/20/25 12:57 10 ML Acetaminophen/ Hydrocodone Bitart 1 tab Q4HP PRN PO 03/17/25 22:45 Ondansetron HCl 4 mg Q4HP PRN IV 03/17/25 22:45 03/18/25 11:31 4 MG Docusate Sodium 100 mg BIDPRN PRN PO 03/17/25 22:45 Acetaminophen 650 mg Q6HP PRN PO 03/17/25 22:45 Morphine Sulfate 2 mg Q4HPRN PRN IV 03/17/25 22:45 03/18/25 11:31 2 MG Nitroglycerin 0.4 mg Q5MINP PRN SL 03/18/25 00:00 Morphine Sulfate 2 mg Q30M PRN IV 03/18/25 00:00 Lorazepam 0.5 mg Q4HPRN PRN IV 03/18/25 03:15 03/18/25 11:31 0.5 MG Hydralazine HCl 10 mg Q6HP PRN IV 03/18/25 03:30 03/18/25 15:07 10 MG Folic Acid 1 mg/ Multivitamins 10 ml/Magnesium Sulfate 8 meq/ Thiamine HCl 100 mg/Dextrose 1,013.2 ml @ 75 mls/hr DAILY@1800 INJ 03/18/25 18:00 03/19/25 17:47 75 MLS/HR Carvedilol 6.25 mg Q12HR PO 03/18/25 22:00 03/20/25 09:23 6.25 MG Pantoprazole Sodium 40 mg BID@0600,1700 PO 03/20/25 17:00 Sucralfate 1 gm TID@0600,1130,2200 PO 03/20/25 11:30 03/20/25 11:08 1 GM Spironolactone 25 mg BIDD PO 03/20/25 18:00 Laboratory Results Laboratory Tests 03/20/25 06:03 Chemistry Test 03/20/25 06:03 Calcium Level 8.7 mg/dL (8.7-10.4) Urinalysis Test 03/17/25 19:06 Urine Color Light-yellow (Yellow) Urine Clarity Clear (Clear) Urine pH 6.0 (5.0-9.0) Urine Specific [place] 1.011 (1.001-1.035) Urine Protein Negative (Negative) Urine Ketones Negative (Negative) Urine Blood Negative /uL (Negative) Urine Nitrite Negative (Negative) Urine Bilirubin Negative (Negative) Urine Urobilinogen Normal mg/dL (Negative) Urine Leukocyte Esterase Negative /uL (Negative) Urine RBC 4 /hpf (0 - 3) Urine Microscopic WBC 1 /HPF (0-3) Urine Squamous Epithelial Cells None seen /hpf (<5) Urine Bacteria None seen /hpf (None Seen) Urine Glucose Normal mg/dL (Normal) Microbiology Microbiology Date/Time Source Procedure Growth Status 03/19/25 00:30 Urine - Heck Port Urine Culture - Preliminary Resulted 03/17/25 19:03 Blood Blood Culture - Preliminary NO GROWTH AFTER 48 HOURS OF INCUBATION. Resulted Assessment/Plan Assessment/Plan Continue present management as he is on. We will do follow up hemoglobin in the morning. Social Service to arrange home health and Heck catheter care. Otherwise plan to discharge home tomorrow with Heck catheter and outpatient follow up with the urologist. Patient once again counseled and educated regarding alcohol use and advised to seek help with the meetings and rehab programs. Patient verbalized understanding of this and agree with the care plan Plan discussed with: Patient, Other My Orders Orders - SUZIE GORDON MD Procedure Category Date Status Time Convert To Leg Bag In ORDERS 03/19/25 Transmitted The Am 13:27 Regular Diet DIET 03/20/25 Transmitted Lunch Pt Request For Service PT 03/20/25 Logged 10:38 Pantoprazole Tablet PHA 03/20/25 In Process (Protonix Tablet) 17:00 Sucralfate Susp PHA 03/20/25 In Process (Carafate Susp) 11:30 Spironolactone PHA 03/20/25 In Process (Aldactone) 18:00 * Programs Manager CONS 03/20/25 Transmitted Consult 10:38 Problem List: (1) Alcohol abuse (2) Anemia (3) Acute urinary retention (4) Melena Date of Service: Mar 20, 2025 Billing Provider: SUZIE GORDON MD Common Visit Codes: [id number] INP/OBS CARE(MOD) SUZIE GORDON MD Mar 20, 2025 13:14
[2025-03-20] MEDS: SPIRONOLACTONE 25 MG TAB PO SCH (17:13)
[2025-03-20] MEDS: PANTOPRAZOLE 40 MG TAB PO SCH (17:13)
[2025-03-20] MEDS: FOLIC ACID 1 MG, MULTIPLE VITAMIN 10 ML, MAGNESIUM SULF SDV 50% 8 MEQ, THIAMINE INJ 100... INJ ONE (17:17)
[2025-03-20] MEDS ORDERED: MULTIPLE VITAMIN TAB PO ONE (18:00)
[2025-03-20] MEDS ORDERED: MAGNESIUM OXIDE 400 MG TAB PO ONE (18:00)
[2025-03-20] MEDS ORDERED: THIAMINE HCL 100 MG TAB PO ONE (18:00)
[2025-03-20] MEDS ORDERED: FOLIC ACID 1 MG TAB PO ONE (18:00)
[2025-03-21 01:00] VITALS: BP 137/76; PULSE 79; RESP 20; TEMP 97.6; O2SAT 94
[2025-03-21 05:00] VITALS: BP 131/78; PULSE 73; RESP 20; TEMP 98; O2SAT 95
[2025-03-21 06:54] LABS: Hematocrit 28.2 % (41.0-53.0); Hemoglobin 9.0 g/dL (13.5-17.5)
[2025-03-21 06:55] LABS: Mean Corpuscular Hemoglobin 24.6 pg (28.0-32.0); Mean Corpuscular Volume 77.0 fL (80.0-100.0)
[2025-03-21 07:03] LABS: Anion Gap 8 (5-15); Carbon Dioxide 27 mmol/L (20-31); Chloride 104 mmol/L (98-107); Sodium 139 mmol/L (136-145)
[2025-03-21 07:05] LABS: Calcium 8.8 mg/dL (8.7-10.4)
[2025-03-21 07:09] LABS: BUN/Creatinine Ratio 9.0 (10.0-20.0); Glucose 92 mg/dL (74-106)
[2025-03-21 07:12] LABS: Blood Urea Nitrogen 8 mg/dL (9-23); Potassium 3.3 mmol/L (3.5-5.1)
--- NOTE | 2025-03-21 07:54 | DVHPN2 ---
Progress Note Date Seen: Mar 21, 2025 Medical Necessity Reason Pt with a Central, PICC or Fol: Yes The following are medically ne: Zaroc Catheter Reason for zarco catheter: Bladder Retention/Obstruc Subjective Patient reports: No new complaints Objective vital signs Vital Sign Date Time Temp Pulse Resp B/P (MAP) Pulse Ox O2 Delivery O2 Flow Rate FiO2 03/21/25 05:00 98.0 73 20 131/78 (95) 95 98.0 03/20/25 20:00 Room Air* 0 21 Total Intake and Output 03/20/25 03/20/25 03/21/25 15:00 23:00 07:00 Intake Total 667 ml 210 ml Output Total 1750 ml Balance -1083 ml 210 ml medications Current Medications Medications Dose Ordered Sig/Aaron Route Start Time Stop Time Status Last Admin Dose Admin Ceftriaxone Sodium 50 ml @ 100 mls/hr DAILY@09 IV 03/18/25 09:00 03/20/25 09:23 100 MLS/HR Tamsulosin HCl 0.4 mg QPM PO 03/18/25 18:00 03/20/25 17:13 0.4 MG Sodium Chloride 10 ml Q8HR IV 03/18/25 06:00 03/21/25 05:33 10 ML Acetaminophen/ Hydrocodone Bitart 1 tab Q4HP PRN PO 03/17/25 22:45 Ondansetron HCl 4 mg Q4HP PRN IV 03/17/25 22:45 03/18/25 11:31 4 MG Docusate Sodium 100 mg BIDPRN PRN PO 03/17/25 22:45 Acetaminophen 650 mg Q6HP PRN PO 03/17/25 22:45 Morphine Sulfate 2 mg Q4HPRN PRN IV 03/17/25 22:45 03/18/25 11:31 2 MG Nitroglycerin 0.4 mg Q5MINP PRN SL 03/18/25 00:00 Morphine Sulfate 2 mg Q30M PRN IV 03/18/25 00:00 Lorazepam 0.5 mg Q4HPRN PRN IV 03/18/25 03:15 03/18/25 11:31 0.5 MG Hydralazine HCl 10 mg Q6HP PRN IV 03/18/25 03:30 03/18/25 15:07 10 MG Carvedilol 6.25 mg Q12HR PO 03/18/25 22:00 03/20/25 21:45 6.25 MG Pantoprazole Sodium 40 mg BID@0600,1700 PO 03/20/25 17:00 03/21/25 05:33 40 MG Sucralfate 1 gm TID@0600,1130,2200 PO 03/20/25 11:30 03/21/25 05:33 1 GM Spironolactone 25 mg BIDD PO 03/20/25 18:00 03/21/25 05:33 25 MG Folic Acid 1 mg DAILY PO 03/21/25 10:00 Multivitamins 1 tab DAILY PO 03/21/25 10:00 Magnesium Oxide 400 mg DAILY PO 03/21/25 10:00 Thiamine HCl 100 mg DAILY PO 03/21/25 10:00 laboratory and microbiology Laboratory Tests 03/21/25 05:58 Test 03/21/25 05:58 Range/Units Serum Glucose 92 74-106 mg/dL Microbiology Date/Time Source Procedure Growth Status 03/19/25 00:30 Urine - Zarco Port Urine Culture - Preliminary Resulted 03/17/25 19:03 Blood Blood Culture - Preliminary NO GROWTH AFTER 72 HOURS OF INCUBATION. Resulted Problem List/Assessment/Plan Problem List/Assessment/Plan acute kidney injury likely secondary to obstructive etiology bilateral hydroureteronephrosis extending to level of distended urinary bladder Possible bladder outlet obstruction pulm nodule HTN Sixt[place] resolved lasix completed aldactone started avoid low BP potassium po replacement today zarco cath, due to large prostate. Urology rec outpatient cystoscopy Plan discussed with: Patient My Orders My Orders Orders - JOANN BOND MD Procedure Category Date Status Time Potassium Er Tablet PHA 03/21/25 Verified (Klor-Con Tablet) 08:00 Dietary Evaluation Review Comments: 1) Initiate Ensure Clear qd 2) Encourage optimal PO intake 3) Advance to cardiac diet when medically feasible 4) Refer to outpatient RD for weight management 5) Follow-up with gastroenterology, urology, nephrology, and cardiology 6) Follow-up with social media specialist r/t ETOH abuse 4) Continue to monitor I&O, labs, and skin integrity Expected Outcomes/Goals: 1) appetite and labs to improve 2) diet to advance 3) f/u in 3-5 days JOANN BOND MD Mar 21, 2025 07:54
[2025-03-21 08:00] VITALS: PULSE 74; PULSE 75; RESP 19; O2SAT 93
[2025-03-21 08:07] LABS: Prostate Specific Antigen 7.7 ng/mL (0.0-4.0)
[2025-03-21 08:29] LABS: Anisocytosis Slight; Total Cells Counted 100.0 (100)
[2025-03-21 08:30] VITALS: BP 115/60; PULSE 75; RESP 19; TEMP 98.6; O2SAT 93
[2025-03-21] MEDS: MAGNESIUM OXIDE 400 MG TAB PO SCH (09:02)
[2025-03-21] MEDS: POTASSIUM CHL 20 Meq TABLET PO ONE (09:02)
[2025-03-21] MEDS: FOLIC ACID 1 MG TAB PO SCH (09:02)
[2025-03-21] MEDS: MULTIPLE VITAMIN TAB PO SCH (09:03)
[2025-03-21] MEDS: THIAMINE HCL 100 MG TAB PO SCH (09:03)
[2025-03-21] MEDS ORDERED: SPIR25TA8 PO (11:35)
[2025-03-21] MEDS ORDERED: MULTTAB99 PO (11:35)
[2025-03-21] MEDS ORDERED: CARV3.1240 PO (11:35)
[2025-03-21] MEDS ORDERED: FINA5TAB4 PO (11:35)
[2025-03-21] MEDS ORDERED: PANT40TA57 PO (11:35)
[2025-03-21] MEDS ORDERED: TAMS-35 PO (11:35)
[2025-03-21] MEDS ORDERED: IRON100T PO (11:35)
--- NOTE | 2025-03-21 11:36 | DVHDS2 ---
Discharge Summary Date of Admission Mar 17, 2025 at 23:58 Date of Discharge: Mar 21, 2025 Labs/Diagnostic Data: Laboratory Results Test 03/21/25 05:58 03/20/25 11:15 03/19/25 05:17 03/18/25 06:07 White Blood Count 10.8 10^3/uL (4.4-10.8) Red Blood Count 3.67 10^6/uL (4.5-5.90) Hemoglobin 9.0 g/dL (13.5-17.5) Hematocrit 28.2 % (41.0-53.0) Mean Corpuscular Volume 77.0 fL (80.0-100.0) Mean Corpuscular Hemoglobin 24.6 pg (28.0-32.0) Mean Corpuscular Hemoglobin Concent 32.0 g/dL (32.0-36.0) Red Cell Distribution Width 29.0 % (11.8-14.3) Platelet Count 406 10^3/uL (140-450) Mean Platelet Volume 7.7 fL (6.9-10.8) Neutrophils (%) (Auto) % (37.0-80.0) Lymphocytes (%) (Auto) % (10.0-50.0) Monocytes (%) (Auto) % (0.0-12.0) Basophils (%) (Auto) % (0.0-2.0) Neutrophils # (Auto) 10 ^3/uL (1.6-8.6) Lymphocytes # (Auto) 10 ^3/uL (0.4-5.4) Monocytes # (Auto) 10 ^3/uL (0-1.3) Differential Total Cells Counted 100.0 (100) Neutrophils % (Manual) 69 (37.0-80.0) Band Neutrophils % (Manual) 0 Lymphocytes % (Manual) 20 (10.0-50.0) Monocytes % (Manual) 9 (0-12) Eosinophils % (Manual) 2 (0-7) Basophils % (Manual) 0 (0.0-2.0) Metamyelocytes % (manual) 0 Myelocytes % (Manual) 0 Promyelocytes % (Manual) 0 Blast Cells % (Manual) 0 Reactive Lymphocytes 0 Platelet Estimate Adequate Hypochromasia (manual) Slight Anisocytosis (manual) Slight Microcytosis Slight Sodium Level 139 mmol/L (136-145) Potassium Level 3.3 mmol/L (3.5-5.1) Chloride Level 104 mmol/L (98-107) Carbon Dioxide Level 27 mmol/L (20-31) Anion Gap 8 (5-15) Blood Urea Nitrogen 8 mg/dL (9-23) Creatinine 0.89 mg/dL (0.700-1.30) Glomerular Filtration Rate Calc 91 mL/min (>90) BUN/Creatinine Ratio 9.0 (10.0-20.0) Serum Glucose 92 mg/dL (74-106) Calcium Level 8.8 mg/dL (8.7-10.4) Ammonia 31 umol/L (11-32) Eosinophils (%) (Auto) 2.4 % (0.0-7.0) Eosinophils # (Auto) 0.2 10 ^3/uL (0-0.8) Basophils # (Auto) 0 10 ^3/uL (0-0.2) Nucleated Red Blood Cells 0.1 % Prothrombin Time 10.9 sec (9.3-11.8) Prothrombin Time INR 1.03 (0.9-1.15) Total Bilirubin 0.4 mg/dL (0.2-1.0) Direct Bilirubin 0.2 mg/dL (<0.3) Aspartate Amino Transferase (AST) 26 U/L (13-40) Alanine Aminotransferase (ALT) 18 U/L (7-40) Alkaline Phosphatase 58 U/L (46-116) Total Protein 5.0 g/dL (5.7-8.2) Albumin 3.0 g/dL (3.2-4.8) Hepatitis A Antibody Total Positive (Negative) Hepatitis B Surface Antigen Negative (Negative) Hepatitis B Surface Antibody Negative (Negative) Hepatitis B Core Total Antibody Negative (Negative) Hepatitis C Antibody Negative (Negative) Target Cells Few Magnesium Level 1.8 mg/dL (1.6-2.6) Free Prostate Specific Antigen 0.52 ng/mL (N/A) Percent Free Prostate Specific Ag 6.8 % (.) Prostate Specific Antigen Total 7.7 ng/mL (0.0-4.0) Test 03/17/25 21:52 03/17/25 19:06 03/17/25 19:03 03/17/25 18:48 Troponin I High Sensitivity 3 ng/L (</=54) Urine Color Light-yellow (Yellow) Urine Clarity Clear (Clear) Urine pH 6.0 (5.0-9.0) Urine Specific [place] 1.011 (1.001-1.035) Urine Protein Negative (Negative) Urine Ketones Negative (Negative) Urine Blood Negative /uL (Negative) Urine Nitrite Negative (Negative) Urine Bilirubin Negative (Negative) Urine Urobilinogen Normal mg/dL (Negative) Urine Leukocyte Esterase Negative /uL (Negative) Urine RBC 4 /hpf (0 - 3) Urine Microscopic WBC 1 /HPF (0-3) Urine Squamous Epithelial Cells None seen /hpf (<5) Urine Bacteria None seen /hpf (None Seen) Urine Glucose Normal mg/dL (Normal) Lactic Acid Level 1.3 mmol/L (0.4-2.0) B-Type Natriuretic Peptide 176.86 pg/mL (0-100) Lipase 35 U/L (12-53) Other Laboratory Tests 03/21/25 05:58 Brief Hx & Hospital Course: 74-year-old male with past medical history of hypertension and enlarged prostate presents with complaints of abdominal pain and diarrhea. Information in this HPI is limited due to the patient being a poor historian. Patient's brother initially reported to the emergency department that the patient is alcohol dependent, has been having diarrhea with black tarry stools x2 weeks. Patient is endorsing lower abdominal pain with occasional episodes of incontinence. Patient's brother also endorsed he has been drinking heavily the last couple of weeks. Patient states he only drinks a few beers every day. During the emergency department evaluation CBC: W11.2, H&H 9.1/28.6, PLT 288. Na 144, K3.9, BUN 18, creatinine 2.25, GFR 30. CT abdomen and pelvis bilateral hydroureteronephrosis extending to the level of the distended urinary bladder findings reflect bladder outlet obstruction. Contracted appearance of the gallbladder with cholelithiasis and suggestion of mild pericholecystic edema/wall thickening. At this time patient denies fevers, chills, dizziness, shortness of breath, chest pain, palpitations, upper abdominal pain. He is admitted and evaluated by urologist. Patient recommended outpatient follow up for further evaluation management of his obstructive uropathy. While in the hospital patient had a Heck catheter placed and his kidney function has normalized. He is recommended to keep the Heck catheter with a leg bag and follow up with the urologist. While in the hospital patient is also put on alcohol withdrawal protocol with the medications. Patient underwent counseling education regarding alcohol cessation and advised to seek help with the drug rehab programs and AA meetings. Otherwise overall patient is clinically stable in the hospital therefore it is felt he could be safely discharged home with a close outpatient follow up with the Urology primary care physician and alcohol rehab/AA meetings. I have talked with the patient on multiple occasions during this hospitalization regarding his alcohol use, his discharge diagnosis, treatment he received, discharge medications, discharge instructions and follow- up plan of care. He has verbalized understanding of these and agree with care plan as outlined. Consults/Reason for consult Assessment Bilateral hydronephrosis with distended bladder and obstructing prostate Plan/Recommendation PSA Heck to gravity with leg bag for discharge Repeat Kidney US done Creatinine improving with Heck Outpatient cystoscopy and urodynamics to be arranged Plan discussed with: Patient, Other CORDELIA EJFFERSON MD Mar 19, 2025 11:00 Operations or Procedures ORDERING PHYSICIAN: CORDELIA JEFFERSON MD PROCEDURE(s): KIDUS - KIDNEY REASON: Bilateral hydronephrosis ORDER NUMBER(s): [id number], ACCESSION NUMBER(s): [id number] BILATERAL RENAL ULTRASOUND CLINICAL HISTORY: Bilateral hydronephrosis COMPARISON: CT 03/17/2025 TECHNIQUE: High-resolution real-time grayscale and color flow imaging is performed. FINDINGS: Right kidney: Measures 13.2 cm in length. Normal cortical thickness and echogenicity. Jptf-ap-opzbeknn hydronephrosis. Left kidney: Measures approximately 12.7 cm in length. Normal cortical thickness and echogenicity. Tvye-so-ezguomqg hydronephrosis. Bladder: Appears to be collapsed around the Heck catheter. IMPRESSION: Relh-ve-gmmtmwsj bilateral hydronephrosis. HS:Y EDURE(s): ECIDC - ECHO 2D MODE CARDIAC DOP REASON: BLE edema ORDER NUMBER(s): [id number], ACCESSION NUMBER(s): [id number] APPROVED REPORT EXAM: LIMITED Two-dimensional and M-mode echocardiogram with Doppler and color Doppler. Blood Pressure: 158/87 mmHg INDICATION BLE Edema RISK FACTORS Height: 5' 6", Weight: 194 DIMENSIONS LVDd 5.1 (3.8-5.7cm) LA (2D) 4.4 (1.9-4.0cm) Aortic Root 3.2 (2.0- 3.7cm) LVDs 3.6 (2.5-4.0cm) LA (MM) (1.9-4.0cm) Aortic Cusp Exc 1.8 (1.5- 2.0cm) EF (%) 55.0 (55-70%) Rt. Atrium 4.0 (1.9-4.0cm) Asc. Aorta cm IVSd 0.9 (0.7-1.1cm) RV (D) (1.8-2.4cm) PWd 0.8 (0.7-1.1cm) Mitral Valve Mitral Mitral Stenosis E wave 0.70m/s MV Mean GR. mmHg A wave 0.90m/s MV Peak GR. mmHg E/A ratio 0.8 2D MVA cm2 Aortic Valve Aortic Valve Aortic Stenosis V1 1.20m/s AO Mean GR. 4mmHg V2 1.30m/s AO Peak GR. 8mmHg LVOT Diameter 2.2 (1.8-2.4cm) Doppler TWILA 3.51cm2 Pulmonic Valve V2 0.40m/s Other Information Quality : Technically Limited Rhythm : Technically limited study due to body habitus and patient position. Conclusion Left ventricle: Left ventricle was normal-sized with normal systolic function. There was no wall motion abnormality. LVEF was 55%. Diastolic function was considered normal for age. Right ventricle was normal-sized with normal systolic function. Both atria were normal-sized. Aortic valve was not well visualized. There was no aortic insufficiency/stenosis. There was no mitral/tricuspid regurgitation. Pulmonary valve was not well visualized. There was trace pericardial effusion As there was no good tricuspid regurgitation jet, right ventricular systolic pressure could not be estimated. There was no echocardiographic evidence for pulmonary hypertension. SIGNED BY: DIAMOND PANTOJA MD SIGNED DATE/TIME: 03/18/251911 Condition at Discharge: Stable Final Diagnosis/Problems List Enlarged prostate with the obstructive uropathy status post Heck catheter placement, acute kidney injury due to uropathy resolved, alcohol use disorder, alcohol gastritis Discharge Disposition: Home Discharge Instruct/Medications Diet: Consistent carbohydrate, Cardiac 2g Na,low cholest Activity: No Restrictions, As Tolerated Follow Up/Referral: Dr. Malik Welch urologist for Outpatient cystoscopy and urodynamics to be arranged. Primary care physician next week for referral to Urology Medications: As prescribed and home medications per discharge med reconciliation list New Medications: Carvedilol (Carvedilol) 3.125 Mg Tab 1 TAB PO BID, #60 TAB 1 Refill Finasteride (Finasteride) 5 Mg Tab 1 TAB PO DAILY, #90 TAB 1 Refill Iron-Vitamin C (Iron 100/C) 1 Tab Tab 1 TAB PO DAILY@BREAKFAST, #30 TAB Multiple Vitamin (Mvi Tab) 1 Tab Tb 1 TAB PO DAILY@LUNCH, #60 TAB Pantoprazole Sodium Sesquihydr (Pantoprazole Sodium Dr) 40 Mg Tab 40 MG PO DAILY, #60 TAB Spironolactone (Spironolactone) 25 Mg Tab 1 TAB PO BID, #90 TAB 1 Refill Tamsulosin Hcl (Flomax) 0.4 Mg Cap 1 CAP PO QPM, #30 CAP Scheduled Carvedilol (Carvedilol), 1 TAB PO BID Finasteride (Finasteride), 1 TAB PO DAILY Iron-Vitamin C (Iron 100/C), 1 TAB PO DAILY@BREAKFAST Multiple Vitamin (Mvi Tab), 1 TAB PO DAILY@LUNCH Pantoprazole Sodium Sesquihydr (Pantoprazole Sodium Dr), 40 MG PO DAILY Spironolactone (Spironolactone), 1 TAB PO BID Tamsulosin Hcl (Flomax), 1 CAP PO QPM Discharge Statement: "Patient was advised to return to the ER or call 911 if any headaches, dizziness, shortness of breath, chest pain, abdominal pain, bleeding, fevers, or worsening of medical condition. Patient was counseled about treatment plan, medications, possible side effects, patientverbalized understanding. All questions were answered to the best of my ability. This discharge took greater then 30 minutes in planning, reviewing documentation, counseling the patient, and discussing with other team members." ASSESSMENT ASSESSMENT Assessment Enlarged prostate with the obstructive uropathy status post Heck catheter placement, acute kidney injury due to uropathy resolved, alcohol use disorder, alcohol gastritis SUZIE GORDON MD Mar 21, 2025 11:36
[2025-03-21 12:04] VITALS: BP 115/60; PULSE 75; RESP 19; TEMP 98.6; O2SAT 93
[2025-03-21 13:00] VITALS: BP 94/55; PULSE 74; RESP 19; TEMP 98.5; O2SAT 95
--- NOTE | 2025-03-21 22:52 | DVHPN2 ---
Progress Note - Dictate Date Seen: Mar 21, 2025 (Late entryTime of visit 1:00 p.m.) Medical Necessity Reason Pt with a Central, PICC or Fol: Yes The following are medically ne: Zarco Catheter Reason for zarco catheter: Bladder Retention/Obstruc Subjective No active bleeding H&H stable; no melena Hemoglobin stable at 9 vital signs Vital Sign Date Time Temp Pulse Resp B/P (MAP) Pulse Ox O2 Delivery O2 Flow Rate FiO2 03/21/25 13:00 98.5 74 19 94/55 (68) 95 98.5 03/21/25 08:00 Room Air* 0 21 Total Intake and Output 03/20/25 03/20/25 03/21/25 15:00 23:00 07:00 Intake Total 667 ml 210 ml Output Total 1750 ml Balance -1083 ml 210 ml objective Comfortable in bed. HEENT neck supple no JVD. Heart regular rate and rhythm. Lungs without rales wheezes. Abdomen soft nontender positive bowel sounds. Extremities no edema laboratory and microbiology Laboratory Tests 03/21/25 05:58 Test 03/21/25 05:58 Range/Units Serum Glucose 92 74-106 mg/dL Problems(with codes): (1) Acute urinary retention (2) Pitting edema (3) Abdominal pain (4) Diarrhea (5) Acute renal failure (6) Anemia (7) Alcohol abuse (8) Melena Prognosis Plan Enlarged prostate with the obstructive uropathy status post Zarco catheter placement, acute kidney injury due to uropathy resolved, alcohol use disorder, alcohol gastritis Discharge planning is in progress Outpatient follow up with GI Services to monitor his liver enzymes and discuss elective panendoscopy Once again thank you for allowing me to participate in the care of this patient Dietary Evaluation Review Comments: 1) Initiate Ensure Clear qd 2) Encourage optimal PO intake 3) Advance to cardiac diet when medically feasible 4) Refer to outpatient RD for weight management 5) Follow-up with gastroenterology, urology, nephrology, and cardiology 6) Follow-up with social sciences department chair r/t ETOH abuse 4) Continue to monitor I&O, labs, and skin integrity Expected Outcomes/Goals: 1) appetite and labs to improve 2) diet to advance 3) f/u in 3-5 days Plan discussed with: Patient ROSELINE AVELAR MD Mar 21, 2025 22:52
== END 2025-03-21 15:35 | disposition home health service (06) | DRG 725 ==
LOC: ER 17:57 → OVERFLOW 23:58 → TELE-CENTR 03-18 14:19
PROVIDERS: ADMIT Hospitalist; ATTEND Hospitalist
DX: N40.1 Benign prostatic hyperplasia with lower urinary tract symptoms (principal); K29.21 Alcoholic gastritis with bleeding; N13.6 Pyonephrosis; N13.8 Other obstructive and reflux uropathy; I50.32 Chronic diastolic (congestive) heart failure; N17.8 Other acute kidney failure; K80.20 Calculus of gallbladder without cholecystitis without obstruction; D64.9 Anemia, unspecified; N18.9 Chronic kidney disease, unspecified; E87.6 Hypokalemia; I12.9 Hypertensive chronic kidney disease with stage 1 through stage 4 chronic kidney disease, or unspecified chronic kidney disease; N32.0 Bladder-neck obstruction; K29.20 Alcoholic gastritis without bleeding; F10.20 Alcohol dependence, uncomplicated; R32 Unspecified urinary incontinence; Z79.899 Other long term (current) drug therapy; Y90.9 Presence of alcohol in blood, level not specified
CPT/HCPCS: 36415; 71045; 74176; 76775; 80048; 80053; 80076; 81001; 82140; 83605; 83690; 83735; 83880; 84154; 84484; 85007; 85014; 85018; 85025; 85027; 85610; 86704; 86706; 86708; 86803; 87040; 87086; 87340; 93005; 93306; 93970; 96365; 96375; 97116; 97163; 97530; G0378; J2405; J2470